=== PATIENT | female | born 1985 | race Caucasian/White ===

== ENCOUNTER 2017-08-15 07:23 | Inpatient (IN) | payer BC ==
[2017-08-15] MEDS ORDERED: Sodium Chloride 0.9% 10 ML Syringe FLUSH PRN (07:25)
[2017-08-15] MEDS ORDERED: Ondansetron 4 MG/2 ML SDV IVPUSH PRN (07:25)
[2017-08-15] MEDS ORDERED: Nalbuphine 20 MG/1 ML Amp IVPUSH PRN (07:25)
--- NOTE | 2017-08-15 07:29 | PCM.LDHP ---
L&D History of Present Illness - General Date of Service: 08/15/17 Admit Problem/Dx: Patient Status Order with Admit Dx/Problem 08/15/17 07:25 Patient Status [ADT] Routine Admission Diagnosis/Problem Admission Diagnosis/Problem Normal Source of Information: Patient History Limitations: Reports: No Limitations - History of Present Illness Introduction:: Patient is a 31 y/o at 37 0/7 wks who presents for IOL for pre- eclampsia. Reports doing well since last seen. No major concerns. Having some cramping, but no zaria contractions. No other concerns. - Related Data Allergies/Adverse Reactions: Allergies Allergy/AdvReac Type Severity Reaction Status Date / Time amoxicillin Allergy Mild Hives Verified 08/15/17 10:53 cephalexin [From Keflex] Allergy Hives Verified 08/15/17 10:53 Home Medications: Home Meds Ferrous Sulfate 325 mg PO DAILY 11/19/15 [History] PNV95/Ferrous Fumarate/FA [ Vitamins Tablet] 1 tab PO DAILY 11/19/15 [ History] Sertraline [Zoloft] 50 mg PO DAILY 11/19/15 [History] Acetaminophen [Tylenol] 650 mg PO Q4H PRN #0 tablet 11/21/15 [Rx] Benzocaine/Menthol [Dermoplast Pain Relief [place]] 1 spray TOP ASDIRECTED PRN #0 canister 11/21/15 [Rx] Ibuprofen [IJD: Ibuprofen] 600 mg PO Q4H PRN #0 tablet 11/21/15 [Rx] Labetalol [Normodyne] 200 mg PO BID #112 tablet 11/21/15 [Rx] [place] Sania [Tucks] 1 pad TOP ASDIRECTED PRN #0 pad 11/21/15 [Rx] Past Medical History Respiratory History: Reports: 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 Para: 1 LMP (Approximate): - Past Surgical History HEENT Surgical History: Reports: Adenoidectomy, Tonsillectomy Social & Family History - Tobacco Use Smoking Status *Q: Never Smoker - Alcohol Use Alcohol Use History: No - Recreational Drug Use Recreational Drug Use: No H&P Review of Systems - Review of Systems: Review Of Systems: See Below General: Reports: No Symptoms Pulmonary: Reports: No Symptoms Cardiovascular: Reports: No Symptoms Gastrointestinal: Reports: No Symptoms Genitourinary: Reports: No Symptoms Musculoskeletal: Reports: No Symptoms Skin: Reports: No Symptoms Neurological: Reports: No Symptoms L&D Exam - Exam Exam: See Below - OB Specific Contraction Intensity: Irritability Movement: Active Heart Tones: Present Heart Tones per Min: 145 Presentation: Vertex - Chun Score Chun Score Cervix Position: Posterior Chun Score Consistency: Medium Chun Score Effacement: 51-70% Chun Score Dilation: 1-2 cm Chun Score Infant's Station: -2 Chun Score Total: 5 - Exam General: Alert, Oriented, Cooperative Lungs: Clear to Auscultation, Normal Respiratory Effort Cardiovascular: Regular Rate, Regular Rhythm GI/Abdominal Exam: Soft, Non-Tender Genitourinary: Normal external exam Extremities: Normal Inspection Skin: Warm, Dry, Intact - Patient Data Result Diagrams: 08/15/17 08:10 08/15/17 08:10 - Problem List (1) 37 weeks gestation of SNOMED Code(s): 24056701 ICD Code: Z3A.37 - 37 WEEKS GESTATION OF Status: Acute Current Visit: Yes (2) Preeclampsia SNOMED Code(s): 648642373 ICD Code: O14.90 - UNSPECIFIED PRE-ECLAMPSIA, UNSPECIFIED TRIMESTER Status : Acute Current Visit: Yes Qualifiers: Trimester: third trimester Qualified Code(s): O14.93 - Unspecified pre- eclampsia, third trimester Problem List Initiated/Reviewed/Updated: Yes Orders Last 24hrs: Active Orders 24 hr Category Date Time Status Patient Status [ADT] Routine ADT 08/15/17 07:25 Ordered Communication Order [RC] ASDIRECTED Care 08/15/17 07:25 Ordered Communication Order [RC] ASDIRECTED Care 08/15/17 07:25 Ordered Communication Order [RC] ASDIRECTED Care 08/15/17 07:25 Ordered Heart Tones [RC] ASDIRECTED Care 08/15/17 07:26 Ordered Notify Provider [RC] ASDIRECTED Care 08/15/17 07:25 Ordered Notify Provider [RC] PRN Care 08/15/17 07:25 Ordered Peripheral IV Care [RC] . DIRECTED Care 08/15/17 07:26 Ordered Up ad Linda [RC] ASDIRECTED Care 08/15/17 07:25 Ordered Vaginal Exam [RC] ASDIRECTED Care 08/15/17 07:25 Ordered Vital Signs [RC] ASDIRECTED Care 08/15/17 07:25 Ordered Vital Signs [RC] PER UNIT ROUTINE Care 08/15/17 07:25 Ordered Regular Diet [DIET] Diet 08/15/17 Breakfast Ordered ALANINE AMINOTRANSFERASE,ALT [CHEM] Routine Lab 08/15/17 07:25 Ordered ASPARTATE AMNIOTRANSFERASE,AST [CHEM] Routine Lab 08/15/17 07:25 Ordered CBC W/O DIFF,HEMOGRAM [HEME] Routine Lab 08/15/17 07:25 Ordered CREATININE W/GFR [CHEM] Routine Lab 08/15/17 07:25 Ordered TYPE AND SCREEN [BBK] Routine Lab 08/15/17 07:25 Ordered UA W/O MICROSCOPIC [URIN] Routine Lab 08/15/17 07:25 Uncollected Lactated Ringers [Ringers, Lactated] 1,000 ml Med 08/15/17 07:30 Ordered IV ASDIRECTED Nalbuphine [Nubain] Med 08/15/17 07:25 Ordered 10 mg IVPUSH Q2H PRN Ondansetron [Zofran] Med 08/15/17 07:25 Ordered 4 mg IVPUSH Q4H PRN Oxytocin/Lactated Ringers [Pitocin in LR 10 Units/1,000 Med 08/15/17 07:30 Ordered ML] 10 unit in 1,000 ml IV .CONTINUOUS Oxytocin/Lactated Ringers [Pitocin in LR 10 Units/1,000 Med 08/15/17 07:30 Ordered ML] 10 unit in 1,000 ml IV TITRATE Sodium Chloride 0.9% [Saline Flush] Med 08/15/17 07:25 Ordered 10 ml FLUSH ASDIRECTED PRN Electronic Heart Tones Ext w TOCO [WOMSER] Oth 08/15/17 07:25 Ordered Routine Electronic Heart Tones Internal [WOMSER] Per Unit Oth 08/15/17 07:25 Ordered Routine Peripheral IV Insertion Adult [OM.PC] Routine Oth 08/15/17 07:25 Ordered Resuscitation Status Routine Resus Stat 08/15/17 07:25 Ordered Assessment/Plan Comment:: 31 y/o at 37 0/7 wks presents for IOL for preeclampsia without severe features * CBC, T&S, Creatinine, AST, ALT * Pitocin with eventual AROM for IOL * Pain management per patient preference * Anticipate
[2017-08-15] MEDS ORDERED: Oxytocin/Lactated Ringers 10 UNIT/1,000 ML BAG IV SCH ×2 (07:30)
[2017-08-15] MEDS ORDERED: fentaNYL 100 MCG/2 ML SDV EPIDUR PRN (07:50)
[2017-08-15] MEDS ORDERED: diphenhydrAMINE 50 MG/ML SDV IVPUSH PRN (07:50)
[2017-08-15] MEDS ORDERED: ePHEDrine 50 MG/ML SDV IVPUSH PRN (07:50)
[2017-08-15] MEDS ORDERED: Bupivacaine/fentaNYL/NS 100 ML Bag EPIDUR SCH (08:00)
[2017-08-15] MEDS: Lactated Ringers 1,000 ML IV SCH ×3 (08:58→15:30)
--- NOTE | 2017-08-15 12:44 | PCM.PNLD ---
Labor Progress Note - VS & Meds Vital Signs: Last Vital Signs Temp 37.0 C 08/15/17 08:58 Pulse 69 08/15/17 10:32 Resp 15 08/15/17 08:58 BP 131/90 08/15/17 10:32 Pulse Ox Active Medications: Current Medications Diphenhydramine HCl (Benadryl) 25 mg IVPUSH Q6H PRN PRN Reason: Itching Ephedrine Sulfate (Ephedrine Sulfate) 5 mg IVPUSH ASDIRECTED PRN PRN Reason: HYPOTENTSION Fentanyl (Sublimaze) 100 mcg EPIDUR Q3H PRN PRN Reason: PAIN Fentanyl/Bupivacaine HCl (Fentanyl/Bupivacaine/Ns 2 Mcg-0.125% 100 Ml) 100 ml EPIDUR ASDIRECTED ANEL Lactated Ringer's (Ringers, Lactated) 1,000 mls @ 40 mls/hr IV ASDIRECTED ANEL Last Admin: 08/15/17 08:58 Dose: 40 mls/hr Oxytocin/Lactated Ringer's (Pitocin In Lr 10 Units/1,000 Ml) 10 unit in 1,000 mls @ 12 mls/hr IV TITRATE ANEL; 2 MUNITS/MIN PRN Reason: Protocol Last Titration: 08/15/17 10:33 Dose: 8 munits/min, 48 mls/hr Oxytocin/Lactated Ringer's (Pitocin In Lr 10 Units/1,000 Ml) 10 unit in 1,000 mls @ 500 mls/hr IV .CONTINUOUS ANEL Nalbuphine HCl (Nubain) 10 mg IVPUSH Q2H PRN PRN Reason: Pain (moderate 4-6) Ondansetron HCl (Zofran) 4 mg IVPUSH Q4H PRN PRN Reason: Nausea/Vomiting Sodium Chloride (Saline Flush) 10 ml FLUSH ASDIRECTED PRN PRN Reason: Keep Vein Open - Uterine Contractions Uterine Monitoring Mode: External [place] Contraction Intensity: Mild to Moderate Uterine Resting Tone: Soft - Monitoring Monitor Mode: External Ultrasound Heart Rate (FHR) Baseline: 150 Heart Rate (FHR) Variability: Moderate (6-25 bmp) Accelerations: Present, 15x15 Decelerations: None Strip Review: Category I - Vaginal Exam Dilation (cm): 2 Effacement (Percent): 75 Station: -2 Cervical Position: Posterior - Labor Progress (Free Text) Labor Progress: Patient doing well. Starting to feel some discomfort with contractions. BP's remain normal to mild range. Continue present management
--- NOTE | 2017-08-15 14:02 | PCM.PREANE ---
Preanesthetic Assessment - Anesthesia/Transfusion/Family Hx Anesthesia History: Prior Anesthesia Without Reaction Family History of Anesthesia Reaction: No Transfusion History: No Prior Transfusion(s) - Review of Systems General: No Symptoms Pulmonary: No Symptoms Cardiovascular: No Symptoms Gastrointestinal: No Symptoms Neurological: No Symptoms Other: Reports: None - Physical Assessment Pulse: 69 O2 Sat by Pulse Oximetry: 97 Respiratory Rate: 15 Blood Pressure: 131/90 Temperature: 36.3 C Vital Signs: Last Vital Signs Temp 37.0 C 08/15/17 08:58 Pulse 69 08/15/17 10:32 Resp 15 08/15/17 08:58 BP 131/90 08/15/17 10:32 Pulse Ox Height: 1.55 m Weight: 62.596 kg ASA Class: 2 Mental Status: Alert & Oriented x3 Airway Class: Mallampati = 1 Dentition: Reports: Normal Dentition Thyro-Mental Finger Breadths: 3 Mouth Opening Finger Breadths: 3 ROM/Head Extension: Full Lungs: Clear to Auscultation, Normal Respiratory Effort Cardiovascular: Regular Rate, Regular Rhythm - Lab Values: Laboratory Last Values WBC 10.85 K/mm3 (3.98-10.04) H 08/15/17 08:10 RBC 3.90 M/mm3 (3.98-5.22) L 08/15/17 08:10 Hgb 12.0 gm/L (11.2-15.7) 08/15/17 08:10 Hct 35.1 % (34.1-44.9) 08/15/17 08:10 MCV 90.0 fl (79.4-94.8) 08/15/17 08:10 MCH 30.8 pg (25.6-32.2) 08/15/17 08:10 MCHC 34.2 g/dl (32.2-35.5) 08/15/17 08:10 RDW Std Deviation 42.0 fL (36.4-46.3) 08/15/17 08:10 Plt Count 282 K/mm3 (182-369) 08/15/17 08:10 MPV 9.7 fl (9.4-12.3) 08/15/17 08:10 Creatinine 0.5 mg/dL (0.55-1.02) L 08/15/17 08:10 Est Cr Clr Drug Dosing TNP 08/15/17 08:10 Estimated GFR (MDRD) > 60 mL/min (>60) 08/15/17 08:10 AST 22 U/L (15-37) 08/15/17 08:10 ALT 20 U/L (14-59) 08/15/17 08:10 Urine Color Yellow (Yellow) 08/15/17 11:15 Urine Appearance Clear (Clear) 08/15/17 11:15 Urine pH 7.0 (5.0-8.0) 08/15/17 11:15 Ur Specific [place] 1.025 (1.005-1.030) 08/15/17 11:15 Urine Protein Negative (Negative) 08/15/17 11:15 Urine Glucose (UA) Negative (Negative) 08/15/17 11:15 Urine Ketones Negative (Negative) 08/15/17 11:15 Urine Occult Blood Negative (Negative) 08/15/17 11:15 Urine Nitrite Negative (Negative) 08/15/17 11:15 Urine Bilirubin Negative (Negative) 08/15/17 11:15 Urine Urobilinogen 0.2 (0.2-1.0) 08/15/17 11:15 Ur Leukocyte Esterase Negative (Negative) 08/15/17 11:15 Blood Type O POSITIVE 08/15/17 08:10 Gel Antibody Screen Negative 08/15/17 08:10 - Allergies Allergies/Adverse Reactions: Allergies Allergy/AdvReac Type Severity Reaction Status Date / Time amoxicillin Allergy Mild Hives Verified 08/15/17 10:53 cephalexin [From Keflex] Allergy Hives Verified 08/15/17 10:53 - Anesthesia Plan Pre-Op Medication Ordered: None - Acknowledgements Anesthesia Type Planned: Epidural Pt an Appropriate Candidate for the Planned Anesthesia: Yes Alternatives and Risks of Anesthesia Discussed w Pt/Guardian: Yes Pt/Guardian Understands and Agrees with Anesthesia Plan: Yes PreAnesthesia Questionnaire Respiratory History: Reports: Asthma Other Respiratory History: pt states asthma is very mild and does not use an inhaler Gastrointestinal History: Reports: GERD 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: , Other (See Below) Other OB/BYN History: hx of gest diabetes and preeclampsia with previous - Past Surgical History HEENT Surgical History: Reports: Adenoidectomy, Oral Surgery, Tonsillectomy - SUBSTANCE USE Smoking Status *Q: Never Smoker Second Hand Smoke Exposure: No Recreational Drug Use History: No - HOME MEDS Home Medications: Home Meds Ferrous Sulfate 325 mg PO DAILY 11/19/15 [History] PNV95/Ferrous Fumarate/FA [ Vitamins Tablet] 1 tab PO DAILY 11/19/15 [ History] Sertraline [Zoloft] 50 mg PO DAILY 11/19/15 [History] Acetaminophen [Tylenol] 650 mg PO Q4H PRN #0 tablet 11/21/15 [Rx] Benzocaine/Menthol [Dermoplast Pain Relief [place]] 1 spray TOP ASDIRECTED PRN #0 canister 11/21/15 [Rx] Ibuprofen [IJD: Ibuprofen] 600 mg PO Q4H PRN #0 tablet 11/21/15 [Rx] Labetalol [Normodyne] 200 mg PO BID #112 tablet 11/21/15 [Rx] [place] Sania [Tucks] 1 pad TOP ASDIRECTED PRN #0 pad 11/21/15 [Rx] - CURRENT (IN HOUSE) MEDS Current Meds: Current Medications Diphenhydramine HCl (Benadryl) 25 mg IVPUSH Q6H PRN PRN Reason: Itching Ephedrine Sulfate (Ephedrine Sulfate) 5 mg IVPUSH ASDIRECTED PRN PRN Reason: HYPOTENTSION Fentanyl (Sublimaze) 100 mcg EPIDUR Q3H PRN PRN Reason: PAIN Last Admin: 08/15/17 13:53 Dose: 100 mcg Fentanyl/Bupivacaine HCl (Fentanyl/Bupivacaine/Ns 2 Mcg-0.125% 100 Ml) 100 ml EPIDUR ASDIRECTED ANEL Last Admin: 08/15/17 13:54 Dose: 100 ml Lactated Ringer's (Ringers, Lactated) 1,000 mls @ 40 mls/hr IV ASDIRECTED ANEL Last Admin: 08/15/17 08:58 Dose: 40 mls/hr Oxytocin/Lactated Ringer's (Pitocin In Lr 10 Units/1,000 Ml) 10 unit in 1,000 mls @ 12 mls/hr IV TITRATE ANEL; 2 MUNITS/MIN PRN Reason: Protocol Last Titration: 08/15/17 10:33 Dose: 8 munits/min, 48 mls/hr Oxytocin/Lactated Ringer's (Pitocin In Lr 10 Units/1,000 Ml) 10 unit in 1,000 mls @ 500 mls/hr IV .CONTINUOUS ANEL Nalbuphine HCl (Nubain) 10 mg IVPUSH Q2H PRN PRN Reason: Pain (moderate 4-6) Ondansetron HCl (Zofran) 4 mg IVPUSH Q4H PRN PRN Reason: Nausea/Vomiting Sodium Chloride (Saline Flush) 10 ml FLUSH ASDIRECTED PRN PRN Reason: Keep Vein Open
--- NOTE | 2017-08-15 18:27 | PCM.PNLD ---
Labor Progress Note - VS & Meds Vital Signs: Last Vital Signs Temp 36.3 C 08/15/17 14:02 Pulse 69 08/15/17 14:02 Resp 15 08/15/17 14:02 BP 131/90 08/15/17 14:02 Pulse Ox 97 08/15/17 14:02 Active Medications: Current Medications Diphenhydramine HCl (Benadryl) 25 mg IVPUSH Q6H PRN PRN Reason: Itching Ephedrine Sulfate (Ephedrine Sulfate) 5 mg IVPUSH ASDIRECTED PRN PRN Reason: HYPOTENTSION Fentanyl (Sublimaze) 100 mcg EPIDUR Q3H PRN PRN Reason: PAIN Last Admin: 08/15/17 13:53 Dose: 100 mcg Fentanyl/Bupivacaine HCl (Fentanyl/Bupivacaine/Ns 2 Mcg-0.125% 100 Ml) 100 ml EPIDUR ASDIRECTED ANEL Last Admin: 08/15/17 13:54 Dose: 100 ml Lactated Ringer's (Ringers, Lactated) 1,000 mls @ 40 mls/hr IV ASDIRECTED ANEL Last Admin: 08/15/17 14:23 Dose: 40 mls/hr Oxytocin/Lactated Ringer's (Pitocin In Lr 10 Units/1,000 Ml) 10 unit in 1,000 mls @ 12 mls/hr IV TITRATE ANEL; 2 MUNITS/MIN PRN Reason: Protocol Last Titration: 08/15/17 18:22 Dose: 0 munits/min, 0 mls/hr Oxytocin/Lactated Ringer's (Pitocin In Lr 10 Units/1,000 Ml) 10 unit in 1,000 mls @ 500 mls/hr IV .CONTINUOUS ANEL Nalbuphine HCl (Nubain) 10 mg IVPUSH Q2H PRN PRN Reason: Pain (moderate 4-6) Ondansetron HCl (Zofran) 4 mg IVPUSH Q4H PRN PRN Reason: Nausea/Vomiting Sodium Chloride (Saline Flush) 10 ml FLUSH ASDIRECTED PRN PRN Reason: Keep Vein Open - Uterine Contractions Uterine Monitoring Mode: External [place] Contraction Intensity: Moderate Uterine Resting Tone: Soft - Monitoring Monitor Mode: External Ultrasound Heart Rate (FHR) Baseline: 145 Heart Rate (FHR) Variability: Moderate (6-25 bmp) Accelerations: Present, 15x15 Decelerations: Variable, Intermittent (<50% x 20 min) Strip Review: Category II - Vaginal Exam Dilation (cm): 4 Effacement (Percent): 80 Station: -2 Cervical Position: Midposition - Labor Progress (Free Text) Labor Progress: Patient doing well. Did have some late decelerations after epidural. Those resolved with position changes. Comfortable otherwise.
--- NOTE | 2017-08-15 18:29 | PCM.PNLD ---
Labor Progress Note - VS & Meds Vital Signs: Last Vital Signs Temp 36.3 C 08/15/17 14:02 Pulse 69 08/15/17 14:02 Resp 15 08/15/17 14:02 BP 131/90 08/15/17 14:02 Pulse Ox 97 08/15/17 14:02 Active Medications: Current Medications Diphenhydramine HCl (Benadryl) 25 mg IVPUSH Q6H PRN PRN Reason: Itching Ephedrine Sulfate (Ephedrine Sulfate) 5 mg IVPUSH ASDIRECTED PRN PRN Reason: HYPOTENTSION Fentanyl (Sublimaze) 100 mcg EPIDUR Q3H PRN PRN Reason: PAIN Last Admin: 08/15/17 13:53 Dose: 100 mcg Fentanyl/Bupivacaine HCl (Fentanyl/Bupivacaine/Ns 2 Mcg-0.125% 100 Ml) 100 ml EPIDUR ASDIRECTED ANEL Last Admin: 08/15/17 13:54 Dose: 100 ml Lactated Ringer's (Ringers, Lactated) 1,000 mls @ 40 mls/hr IV ASDIRECTED ANEL Last Admin: 08/15/17 14:23 Dose: 40 mls/hr Oxytocin/Lactated Ringer's (Pitocin In Lr 10 Units/1,000 Ml) 10 unit in 1,000 mls @ 12 mls/hr IV TITRATE ANEL; 2 MUNITS/MIN PRN Reason: Protocol Last Titration: 08/15/17 18:22 Dose: 0 munits/min, 0 mls/hr Oxytocin/Lactated Ringer's (Pitocin In Lr 10 Units/1,000 Ml) 10 unit in 1,000 mls @ 500 mls/hr IV .CONTINUOUS ANEL Nalbuphine HCl (Nubain) 10 mg IVPUSH Q2H PRN PRN Reason: Pain (moderate 4-6) Ondansetron HCl (Zofran) 4 mg IVPUSH Q4H PRN PRN Reason: Nausea/Vomiting Sodium Chloride (Saline Flush) 10 ml FLUSH ASDIRECTED PRN PRN Reason: Keep Vein Open - Uterine Contractions Uterine Monitoring Mode: External [place] Contraction Intensity: Moderate Uterine Resting Tone: Soft - Monitoring Monitor Mode: External Ultrasound Heart Rate (FHR) Baseline: 150 Heart Rate (FHR) Variability: Moderate (6-25 bmp) Accelerations: Present, 15x15 Decelerations: Variable, Intermittent (<50% x 20 min) Strip Review: Category II - Vaginal Exam Dilation (cm): 5-6 Effacement (Percent): 80 Station: -2 Cervical Position: Midposition - Labor Progress (Free Text) Labor Progress: Called by nursing due to 2 severe range BP's in a row. Asked nursing to check patient and she is 5-6, 90%, and -1. Also having more variables. Pitocin decreased to 6 and then turned off completely with resolution of variable decelerations. BP's back to upper mild range. Continue to monitor closely
[2017-08-15] MEDS ORDERED: Magnesium Sulfate/Water 4 GM in Premix Bag 1 BAG IV ONE (18:32)
[2017-08-15] MEDS ORDERED: Magnesium Sulfate/Water 2 GM in Premix Bag 1 BAG IV ONE (18:32)
[2017-08-15] MEDS ORDERED: Magnesium Sulfate/Water 40 GM/1,000 ML BAG IV SCH (18:45)
--- NOTE | 2017-08-15 20:45 | PCM.DEL ---
L & D Note - General Info Date of Service: 08/15/17 - Delivery Note Labor: Induced by ARM, Induced by Oxytocin Delivery Outcome: Livebirth Infant Delivery Method: Spontaneous Vaginal Delivery-Single Infant Delivery Mode: Spontaneous Presentation: Left Occiput Anterior (MARY) Nuchal Cord: Present (x2) Anesthesia Type: Epidural Amniotic Fluid Description: Clear Episiotomy Type: None Laceration: 2nd Degree, Vaginal Suture type: Vicryl Suture size: 2-0 Placenta: Intact, Spontaneous Cord: 3 Vessels Estimated Blood Loss: 250 Resuscitation Needed: Yes [place]: Bulb Syringe, Stimulated, Warmed, [place] Used Score 1 min: 8 Score 5 min: 8 Delivery Comments (Free Text/Narrative):: Patient found to be complete and began pushing. With maternal pushing effort head delivered from an MARY presentation. Tight nuchal present, but could not be reduced as there was continued maternal pushing effort. With gentle downward traction the shoulders and body delivered. Infant placed on maternal abdomen. Cord clamped and cut. Cord blood obtained. Placenta allowed time to separate and spontaneously expelled. Inspection of the perineum showed a 2nd degree laceration of the vagina on maternal right. There was a swiftly bleeding vessel in this site which was controlled with two separate figure of eight sutures of 2-0 vicryl. Next the remainder of tear was closed in a typical fashion with a 2-0 vicryl. On patient's left the hymen was particularly swollen. This is the site of where she had a hematoma with last . No tear in this area. Ice applied immediately. Will monitor tomorrow. - Patient Data Vitals - Most Recent: Last Vital Signs Temp 36.3 C 08/15/17 14:02 Pulse 69 08/15/17 14:02 Resp 15 08/15/17 14:02 BP 131/90 08/15/17 14:02 Pulse Ox 97 08/15/17 14:02 Weight - Most Recent: 62.596 kg Lab Results Last 24 Hours: Laboratory Results - last 24 hr 08/15/17 08/15/17 08/15/17 Range/Units 08:10 08:10 08:10 WBC 10.85 H (3.98-10.04) K/mm3 RBC 3.90 L (3.98-5.22) M/mm3 Hgb 12.0 (11.2-15.7) gm/L Hct 35.1 (34.1-44.9) % MCV 90.0 (79.4-94.8) fl MCH 30.8 (25.6-32.2) pg MCHC 34.2 (32.2-35.5) g/dl RDW Std Deviation 42.0 (36.4-46.3) fL Plt Count 282 (182-369) K/mm3 MPV 9.7 (9.4-12.3) fl Creatinine 0.5 L (0.55-1.02) mg/dL Est Cr Clr Drug Dosing TNP Estimated GFR (MDRD) > 60 (>60) mL/min AST 22 (15-37) U/L ALT 20 (14-59) U/L Urine Color (Yellow) Urine Appearance (Clear) Urine pH (5.0-8.0) Ur Specific [place] (1.005-1.030) Urine Protein (Negative) Urine Glucose (UA) (Negative) Urine Ketones (Negative) Urine Occult Blood (Negative) Urine Nitrite (Negative) Urine Bilirubin (Negative) Urine Urobilinogen (0.2-1.0) Ur Leukocyte Esterase (Negative) Blood Type O POSITIVE Gel Antibody Screen Negative 08/15/17 Range/Units 11:15 WBC (3.98-10.04) K/mm3 RBC (3.98-5.22) M/mm3 Hgb (11.2-15.7) gm/L Hct (34.1-44.9) % MCV (79.4-94.8) fl MCH (25.6-32.2) pg MCHC (32.2-35.5) g/dl RDW Std Deviation (36.4-46.3) fL Plt Count (182-369) K/mm3 MPV (9.4-12.3) fl Creatinine (0.55-1.02) mg/dL Est Cr Clr Drug Dosing Estimated GFR (MDRD) (>60) mL/min AST (15-37) U/L ALT (14-59) U/L Urine Color Yellow (Yellow) Urine Appearance Clear (Clear) Urine pH 7.0 (5.0-8.0) Ur Specific [place] 1.025 (1.005-1.030) Urine Protein Negative (Negative) Urine Glucose (UA) Negative (Negative) Urine Ketones Negative (Negative) Urine Occult Blood Negative (Negative) Urine Nitrite Negative (Negative) Urine Bilirubin Negative (Negative) Urine Urobilinogen 0.2 (0.2-1.0) Ur Leukocyte Esterase Negative (Negative) Blood Type Gel Antibody Screen Med Orders - Current: Current Medications Diphenhydramine HCl (Benadryl) 25 mg IVPUSH Q6H PRN PRN Reason: Itching Ephedrine Sulfate (Ephedrine Sulfate) 5 mg IVPUSH ASDIRECTED PRN PRN Reason: HYPOTENTSION Fentanyl (Sublimaze) 100 mcg EPIDUR Q3H PRN PRN Reason: PAIN Last Admin: 08/15/17 13:53 Dose: 100 mcg Fentanyl/Bupivacaine HCl (Fentanyl/Bupivacaine/Ns 2 Mcg-0.125% 100 Ml) 100 ml EPIDUR ASDIRECTED ANEL Last Admin: 08/15/17 13:54 Dose: 100 ml Lactated Ringer's (Ringers, Lactated) 1,000 mls @ 40 mls/hr IV ASDIRECTED ANEL Last Admin: 08/15/17 15:30 Dose: 40 mls/hr Oxytocin/Lactated Ringer's (Pitocin In Lr 10 Units/1,000 Ml) 10 unit in 1,000 mls @ 12 mls/hr IV TITRATE ANEL; 2 MUNITS/MIN PRN Reason: Protocol Last Titration: 08/15/17 18:22 Dose: 0 munits/min, 0 mls/hr Oxytocin/Lactated Ringer's (Pitocin In Lr 10 Units/1,000 Ml) 10 unit in 1,000 mls @ 500 mls/hr IV .CONTINUOUS ANEL Magnesium Sulfate (Magnesium Sulfate 40 Gm In Water 1000 Ml) 40 gm in 1,000 mls @ 50 mls/hr IV ASDIRECTED ANEL Nalbuphine HCl (Nubain) 10 mg IVPUSH Q2H PRN PRN Reason: Pain (moderate 4-6) Ondansetron HCl (Zofran) 4 mg IVPUSH Q4H PRN PRN Reason: Nausea/Vomiting Sodium Chloride (Saline Flush) 10 ml FLUSH ASDIRECTED PRN PRN Reason: Keep Vein Open Discontinued Medications Magnesium Sulfate 2 gm/ Premix 50 mls @ 25 mls/hr IV ONETIME ONE Stop: 08/15/17 20:31 Last Admin: 08/15/17 18:58 Dose: 300 mls/hr Magnesium Sulfate 4 gm/ Premix 100 mls @ 400 mls/hr IV ONETIME ONE Stop: 08/15/17 18:46 Last Admin: 08/15/17 19:17 Dose: 400 mls/hr - Problem List & Annotations (1) 37 weeks gestation of SNOMED Code(s): 24790888 Code(s): Z3A.37 - 37 WEEKS GESTATION OF Status: Acute Current Visit: Yes (2) Preeclampsia SNOMED Code(s): 485848176 Code(s): O14.90 - UNSPECIFIED PRE-ECLAMPSIA, UNSPECIFIED TRIMESTER Status: Acute Current Visit: Yes Qualifiers: Trimester: third trimester Qualified Code(s): O14.93 - Unspecified pre- eclampsia, third trimester (3) Vaginal delivery SNOMED Code(s): 047708798 Code(s): O80 - ENCOUNTER FOR FULL-TERM UNCOMPLICATED DELIVERY Status: Acute Current Visit: Yes - Problem List Review Problem List Initiated/Reviewed/Updated: Yes - My Orders Last 24 Hours: My Active Orders 08/15/17 07:25 Patient Status [ADT] Routine Communication Order [RC] ASDIRECTED Communication Order [RC] ASDIRECTED Communication Order [RC] ASDIRECTED Notify Provider [RC] ASDIRECTED Notify Provider [RC] PRN Up ad Linda [RC] ASDIRECTED Vaginal Exam [RC] ASDIRECTED Vital Signs [RC] ASDIRECTED Nalbuphine [Nubain] 10 mg IVPUSH Q2H PRN Ondansetron [Zofran] 4 mg IVPUSH Q4H PRN Sodium Chloride 0.9% [Saline Flush] 10 ml FLUSH ASDIRECTED PRN Electronic Heart Tones Ext w TOCO [WOMSER] Routine Electronic Heart Tones Internal [WOMSER] Per Unit Routine Peripheral IV Insertion Adult [OM.PC] Routine Resuscitation Status Routine 08/15/17 07:26 Peripheral IV Care [RC] . DIRECTED 08/15/17 07:30 Lactated Ringers [Ringers, Lactated] 1,000 ml IV ASDIRECTED Oxytocin/Lactated Ringers [Pitocin in LR 10 Units/1,000 ML] 10 unit in 1,000 ml IV .CONTINUOUS Oxytocin/Lactated Ringers [Pitocin in LR 10 Units/1,000 ML] 10 unit in 1,000 ml IV TITRATE 08/15/17 18:45 Magnesium Sulfate/Water [Magnesium Sulfate 40 GM in Water 1000 ML] 40 gm in 1, 000 ml IV ASDIRECTED 08/15/17 Breakfast Regular Diet [DIET] - Assessment Assessment:: 31 y/o G2 now P2002 PPD#0 from at 37 0/7 wks for preeclampsia - Plan Plan:: for preeclampsia * Magnesium started 30 minutes prior to pushing as BP's became severe. Will continue overnight * Ice for perineal care over night * Routine cares * Discharge home in 2 days
[2017-08-15] MEDS ORDERED: Lanolin 100% Cream 7 GM Tube TOP PRN (21:09)
[2017-08-15] MEDS ORDERED: Benzocaine/Menthol 20%-0.5% Spray 56 GM Canister TOP PRN (21:09)
[2017-08-15] MEDS ORDERED: Witch Hazel Medicated Pads 100/Jar TOP PRN (21:09)
[2017-08-15] MEDS ORDERED: Acetaminophen 325 MG Tab PO PRN (21:09)
[2017-08-15] MEDS ORDERED: Bupivacaine 0.25% 10 ML SDV ONE (22:22)
[2017-08-15] MEDS: Ibuprofen 600 MG Tab PO PRN (23:31)
[2017-08-16] MEDS: Ibuprofen 600 MG Tab PO PRN ×2 (05:22→15:42)
[2017-08-16] MEDS: Lactated Ringers 1,000 ML IV SCH (07:05)
--- NOTE | 2017-08-16 07:44 | PCM.PNPP ---
- General Info Date of Service: 08/16/17 Functional Status: Reports: Pain Controlled, Tolerating Diet, Ambulating - Review of Systems General: Reports: No Symptoms Pulmonary: Reports: No Symptoms Cardiovascular: Reports: No Symptoms Gastrointestinal: Reports: No Symptoms Genitourinary: Reports: Pain, Other (Overnight patient apparently could not void and around 2300 was striaght catheterized for ~1L. This ocurred again around 0500 this am for similar amount) Musculoskeletal: Reports: No Symptoms - Patient Data Vital Signs - Most Recent: Last Vital Signs Temp 36.6 C 08/16/17 04:00 Pulse 61 08/16/17 05:23 Resp 16 08/16/17 05:23 BP 121/84 08/16/17 05:23 Pulse Ox 100 08/16/17 05:23 Weight - Most Recent: 62.596 kg I&O - Last 24 Hours: Intake & Output 08/15/17 08/16/17 08/16/17 22:59 06:59 14:59 Intake Total 1590 600 Output Total 2400 Balance 1590 -1800 Lab Results - Last 24 Hours: Laboratory Results - last 24 hr 08/15/17 08/15/17 08/15/17 Range/Units 08:10 08:10 08:10 WBC 10.85 H (3.98-10.04) K/mm3 RBC 3.90 L (3.98-5.22) M/mm3 Hgb 12.0 (11.2-15.7) gm/L Hct 35.1 (34.1-44.9) % MCV 90.0 (79.4-94.8) fl MCH 30.8 (25.6-32.2) pg MCHC 34.2 (32.2-35.5) g/dl RDW Std Deviation 42.0 (36.4-46.3) fL Plt Count 282 (182-369) K/mm3 MPV 9.7 (9.4-12.3) fl Creatinine 0.5 L (0.55-1.02) mg/dL Est Cr Clr Drug Dosing TNP Estimated GFR (MDRD) > 60 (>60) mL/min AST 22 (15-37) U/L ALT 20 (14-59) U/L Urine Color (Yellow) Urine Appearance (Clear) Urine pH (5.0-8.0) Ur Specific [place] (1.005-1.030) Urine Protein (Negative) Urine Glucose (UA) (Negative) Urine Ketones (Negative) Urine Occult Blood (Negative) Urine Nitrite (Negative) Urine Bilirubin (Negative) Urine Urobilinogen (0.2-1.0) Ur Leukocyte Esterase (Negative) Blood Type O POSITIVE Gel Antibody Screen Negative 08/15/17 Range/Units 11:15 WBC (3.98-10.04) K/mm3 RBC (3.98-5.22) M/mm3 Hgb (11.2-15.7) gm/L Hct (34.1-44.9) % MCV (79.4-94.8) fl MCH (25.6-32.2) pg MCHC (32.2-35.5) g/dl RDW Std Deviation (36.4-46.3) fL Plt Count (182-369) K/mm3 MPV (9.4-12.3) fl Creatinine (0.55-1.02) mg/dL Est Cr Clr Drug Dosing Estimated GFR (MDRD) (>60) mL/min AST (15-37) U/L ALT (14-59) U/L Urine Color Yellow (Yellow) Urine Appearance Clear (Clear) Urine pH 7.0 (5.0-8.0) Ur Specific [place] 1.025 (1.005-1.030) Urine Protein Negative (Negative) Urine Glucose (UA) Negative (Negative) Urine Ketones Negative (Negative) Urine Occult Blood Negative (Negative) Urine Nitrite Negative (Negative) Urine Bilirubin Negative (Negative) Urine Urobilinogen 0.2 (0.2-1.0) Ur Leukocyte Esterase Negative (Negative) Blood Type Gel Antibody Screen Med Orders - Current: Current Medications Acetaminophen (Tylenol) 650 mg PO Q4H PRN PRN Reason: mild pain or fever Benzocaine/Menthol (Dermoplast Pain Relief [place]) 0 gm TOP ASDIRECTED PRN PRN Reason: Perineal Comfort Measure Last Admin: 08/16/17 01:17 Dose: 1 canister Docusate Sodium (Colace) 100 mg PO BID PRN PRN Reason: Constipation Emollient Ointment (Lansinoh Hpa) 0 gm TOP ASDIRECTED PRN PRN Reason: Sore Nipples Lactated Ringer's (Ringers, Lactated) 1,000 mls @ 40 mls/hr IV ASDIRECTED ANEL Last Admin: 08/16/17 07:05 Dose: 40 mls/hr Magnesium Sulfate (Magnesium Sulfate 40 Gm In Water 1000 Ml) 40 gm in 1,000 mls @ 50 mls/hr IV ASDIRECTED ANEL Last Admin: 08/15/17 19:30 Dose: 50 mls/hr Ibuprofen (Motrin) 600 mg PO Q6H PRN PRN Reason: Mild pain or fever Last Admin: 08/16/17 05:22 Dose: 600 mg Sertraline HCl (Zoloft) 50 mg PO DAILY [facility] Katie Lui (Tucks) 1 pad TOP ASDIRECTED PRN PRN Reason: Hemorrhoid pain Last Admin: 08/15/17 22:00 Dose: 1 container Discontinued Medications Diphenhydramine HCl (Benadryl) 25 mg IVPUSH Q6H PRN PRN Reason: Itching Ephedrine Sulfate (Ephedrine Sulfate) 5 mg IVPUSH ASDIRECTED PRN PRN Reason: HYPOTENTSION Fentanyl (Sublimaze) 100 mcg EPIDUR Q3H PRN PRN Reason: PAIN Last Admin: 08/15/17 13:53 Dose: 100 mcg Fentanyl/Bupivacaine HCl (Fentanyl/Bupivacaine/Ns 2 Mcg-0.125% 100 Ml) 100 ml EPIDUR ASDIRECTED ANEL Last Admin: 08/15/17 13:54 Dose: 100 ml Oxytocin/Lactated Ringer's (Pitocin In Lr 10 Units/1,000 Ml) 10 unit in 1,000 mls @ 12 mls/hr IV TITRATE ANEL; 2 MUNITS/MIN PRN Reason: Protocol Last Titration: 08/15/17 18:22 Dose: 0 munits/min, 0 mls/hr Oxytocin/Lactated Ringer's (Pitocin In Lr 10 Units/1,000 Ml) 10 unit in 1,000 mls @ 500 mls/hr IV .CONTINUOUS ANEL Magnesium Sulfate 2 gm/ Premix 50 mls @ 25 mls/hr IV ONETIME ONE Stop: 08/15/17 20:31 Last Admin: 08/15/17 18:58 Dose: 300 mls/hr Magnesium Sulfate 4 gm/ Premix 100 mls @ 400 mls/hr IV ONETIME ONE Stop: 08/15/17 18:46 Last Admin: 08/15/17 19:17 Dose: 400 mls/hr Nalbuphine HCl (Nubain) 10 mg IVPUSH Q2H PRN PRN Reason: Pain (moderate 4-6) Ondansetron HCl (Zofran) 4 mg IVPUSH Q4H PRN PRN Reason: Nausea/Vomiting Sodium Chloride (Saline Flush) 10 ml FLUSH ASDIRECTED PRN PRN Reason: Keep Vein Open - Infant Interaction Disposition, : in Room with Family Interaction: Holding Infant Feeding: Breastfed ; Nursed Well Support Person: - Recovery Exam Fundal Tone: Firm Fundal Level: At Umbilicus Fundal Placement: Midline Lochia Amount: Small, Moderate Lochia Color: Rubra/Red Perineum Description: Edematous, Hematoma Episiotomy/Laceration: Approximated Urinary Elimination: Not Voiding, Straight Catheterization - Exam General: Alert, Oriented, Cooperative Lungs: Clear to Auscultation, Normal Respiratory Effort Cardiovascular: Regular Rate, Regular Rhythm GI/Abdominal Exam: Soft, Non-Tender Extremities: Normal Inspection Skin: Warm, Dry, Intact Neurological: Reflexes Equal Bilateral - Problem List & Annotations (1) 37 weeks gestation of SNOMED Code(s): 80484905 Code(s): Z3A.37 - 37 WEEKS GESTATION OF Status: Acute Current Visit: Yes (2) Preeclampsia SNOMED Code(s): 758545472 Code(s): O14.90 - UNSPECIFIED PRE-ECLAMPSIA, UNSPECIFIED TRIMESTER Status: Acute Current Visit: Yes Qualifiers: Trimester: third trimester Qualified Code(s): O14.93 - Unspecified pre- eclampsia, third trimester (3) Vaginal delivery SNOMED Code(s): 599306701 Code(s): O80 - ENCOUNTER FOR FULL-TERM UNCOMPLICATED DELIVERY Status: Acute Current Visit: Yes - Problem List Review Problem List Initiated/Reviewed/Updated: Yes - My Orders Last 24 Hours: My Active Orders 08/15/17 07:25 Vaginal Exam [RC] ASDIRECTED Vital Signs [RC] ASDIRECTED Resuscitation Status Routine 08/15/17 07:26 Peripheral IV Care [RC] . DIRECTED 08/15/17 07:30 Lactated Ringers [Ringers, Lactated] 1,000 ml IV ASDIRECTED 08/15/17 18:45 Magnesium Sulfate/Water [Magnesium Sulfate 40 GM in Water 1000 ML] 40 gm in 1, 000 ml IV ASDIRECTED 08/15/17 21:09 Activity as Tolerated [RC] PER UNIT ROUTINE Communication Order [RC] ASDIRECTED Notify Provider Status Change [RC] ASDIRECTED Notify Provider [RC] ASDIRECTED Vital Signs [RC] Q2HR Acetaminophen [Tylenol] 650 mg PO Q4H PRN Benzocaine/Menthol [Dermoplast Pain Relief [place]] See Dose Instructions TOP ASDIRECTED PRN Docusate Sodium [Colace] 100 mg PO BID PRN Ibuprofen [Motrin] 600 mg PO Q6H PRN Lanolin [Lansinoh HPA] See Dose Instructions TOP ASDIRECTED PRN Witch Sania [Tucks] 1 pad TOP ASDIRECTED PRN Assess Lochia [WOMSER] Per Unit Routine Assess Uterine Involution [WOMSER] Per Unit Routine Breast Pump [WOMSER] Per Unit Routine Deep Tendon Reflexes [WOMSER] ASDIRECTED Heat Therapy [OM.PC] PRN Ice Therapy [OM.PC] Per Unit Routine Perineal Care [OM.PC] Per Unit Routine Sitz Bath [OM.PC] Per Unit Routine 08/15/17 Dinner Regular Diet [DIET] 08/16/17 09:00 Sertraline [Zoloft] 50 mg PO DAILY 08/16/17 21:09 Heat Therapy [OM.PC] PRN - Assessment Assessment:: 31 y/o G2 now P2002 PPD#1 from at 37 0/7 wks for preeclampsia - Plan Plan:: for preeclampsia * Magnesium can be discontinued later this PM * Continue close monitoring of BP's * Patient not able to void overnight. Was not notified of this overnight. Asked patient only be allowed another 2 hours and if still not able to void to have najera placed and if volume greater than 300 cc to have najera left in place. Concern that she will have voiding dysfunction after having these episodes of urinary retention. * Continue ice and sitz baths for perineal hematoma * Discharge home tomorrow pending clinical course
--- NOTE | 2017-08-16 08:47 | PCM48HPAN ---
Post Anesthesia Note - EVALUATION WITHIN 48HRS OF ANESTHETIC Vital Signs in Normal Range: Yes Patient Participated in Evaluation: Yes Respiratory Function Stable: Yes Airway Patent: Yes Cardiovascular Function Stable: Yes Hydration Status Stable: Yes Pain Control Satisfactory: Yes Nausea and Vomiting Control Satisfactory: Yes Mental Status Recovered: Yes
[2017-08-16] MEDS: Docusate Sodium 100 MG Cap PO PRN (15:42)
[2017-08-17] MEDS: Docusate Sodium 100 MG Cap PO PRN (07:16)
[2017-08-17] MEDS: Ibuprofen 600 MG Tab PO PRN (07:16)
--- NOTE | 2017-08-17 07:45 | PCM.PNPP ---
- General Info Date of Service: 08/17/17 Functional Status: Reports: Pain Controlled, Tolerating Diet, Ambulating - Review of Systems General: Reports: No Symptoms Pulmonary: Reports: No Symptoms Cardiovascular: Reports: No Symptoms Gastrointestinal: Reports: No Symptoms Genitourinary: Reports: Pain (improved from yesterday ) Musculoskeletal: Reports: No Symptoms Neurological: Reports: No Symptoms - Patient Data Vital Signs - Most Recent: Last Vital Signs Temp 36.1 C 08/16/17 21:16 Pulse 66 08/16/17 23:58 Resp 18 08/16/17 18:00 BP 128/87 08/17/17 03:00 Pulse Ox 96 08/16/17 23:58 Weight - Most Recent: 62.596 kg I&O - Last 24 Hours: Intake & Output 08/16/17 08/17/17 08/17/17 22:59 06:59 14:59 Intake Total 240 Output Total 450 500 400 Balance -210 -500 -400 Med Orders - Current: Current Medications Acetaminophen (Tylenol) 650 mg PO Q4H PRN PRN Reason: mild pain or fever Benzocaine/Menthol (Dermoplast Pain Relief [place]) 0 gm TOP ASDIRECTED PRN PRN Reason: Perineal Comfort Measure Last Admin: 08/16/17 01:17 Dose: 1 canister Docusate Sodium (Colace) 100 mg PO BID PRN PRN Reason: Constipation Last Admin: 08/17/17 07:16 Dose: 100 mg Emollient Ointment (Lansinoh Hpa) 0 gm TOP ASDIRECTED PRN PRN Reason: Sore Nipples Lactated Ringer's (Ringers, Lactated) 1,000 mls @ 40 mls/hr IV ASDIRECTED [facility] Last Admin: 08/16/17 07:05 Dose: 40 mls/hr Magnesium Sulfate (Magnesium Sulfate 40 Gm In Water 1000 Ml) 40 gm in 1,000 mls @ 50 mls/hr IV ASDIRECTED [facility] Last Admin: 08/15/17 19:30 Dose: 50 mls/hr Ibuprofen (Motrin) 600 mg PO Q6H PRN PRN Reason: Mild pain or fever Last Admin: 08/17/17 07:16 Dose: 600 mg Sertraline HCl (Zoloft) 50 mg PO DAILY [facility] Katie Lui (Tucks) 1 pad TOP ASDIRECTED PRN PRN Reason: Hemorrhoid pain Last Admin: 08/15/17 22:00 Dose: 1 container Discontinued Medications Diphenhydramine HCl (Benadryl) 25 mg IVPUSH Q6H PRN PRN Reason: Itching Ephedrine Sulfate (Ephedrine Sulfate) 5 mg IVPUSH ASDIRECTED PRN PRN Reason: HYPOTENTSION Fentanyl (Sublimaze) 100 mcg EPIDUR Q3H PRN PRN Reason: PAIN Last Admin: 08/15/17 13:53 Dose: 100 mcg Fentanyl/Bupivacaine HCl (Fentanyl/Bupivacaine/Ns 2 Mcg-0.125% 100 Ml) 100 ml EPIDUR ASDIRECTED ANEL Last Admin: 08/15/17 13:54 Dose: 100 ml Oxytocin/Lactated Ringer's (Pitocin In Lr 10 Units/1,000 Ml) 10 unit in 1,000 mls @ 12 mls/hr IV TITRATE ANEL; 2 MUNITS/MIN PRN Reason: Protocol Last Titration: 08/15/17 18:22 Dose: 0 munits/min, 0 mls/hr Oxytocin/Lactated Ringer's (Pitocin In Lr 10 Units/1,000 Ml) 10 unit in 1,000 mls @ 500 mls/hr IV .CONTINUOUS ANEL Magnesium Sulfate 2 gm/ Premix 50 mls @ 25 mls/hr IV ONETIME ONE Stop: 08/15/17 20:31 Last Admin: 08/15/17 18:58 Dose: 300 mls/hr Magnesium Sulfate 4 gm/ Premix 100 mls @ 400 mls/hr IV ONETIME ONE Stop: 08/15/17 18:46 Last Admin: 08/15/17 19:17 Dose: 400 mls/hr Nalbuphine HCl (Nubain) 10 mg IVPUSH Q2H PRN PRN Reason: Pain (moderate 4-6) Ondansetron HCl (Zofran) 4 mg IVPUSH Q4H PRN PRN Reason: Nausea/Vomiting Sodium Chloride (Saline Flush) 10 ml FLUSH ASDIRECTED PRN PRN Reason: Keep Vein Open - Infant Interaction Infant Disposition, : in Room with Family Interaction: Holding Infant Feeding: Breastfed Infant; Nursed Well Support Person: - Recovery Exam Fundal Tone: Firm Fundal Level: At Umbilicus Fundal Placement: Midline Lochia Amount: Small, Moderate Lochia Color: Rubra/Red Perineum Description: Edematous, Hematoma Episiotomy/Laceration: Approximated Bladder Status: Indwelling Catheter in Place Urinary Elimination: Indwelling Catheter - Exam General: Alert, Oriented, Cooperative Lungs: Clear to Auscultation, Normal Respiratory Effort Cardiovascular: Regular Rate, Regular Rhythm GI/Abdominal Exam: Soft, Non-Tender Extremities: Normal Inspection Skin: Warm, Dry, Intact Neurological: Reflexes Equal Bilateral Physical Findings Comment:: Perineal laceration continues to improve. Less edematous today than yesterday - Problem List & Annotations (1) 37 weeks gestation of SNOMED Code(s): 18714343 Code(s): Z3A.37 - 37 WEEKS GESTATION OF Status: Acute (2) Preeclampsia SNOMED Code(s): 818135111 Code(s): O14.90 - UNSPECIFIED PRE-ECLAMPSIA, UNSPECIFIED TRIMESTER Status: Acute Qualifiers: Trimester: third trimester Qualified Code(s): O14.93 - Unspecified pre- eclampsia, third trimester (3) Vaginal delivery SNOMED Code(s): 044026355 Code(s): O80 - ENCOUNTER FOR FULL-TERM UNCOMPLICATED DELIVERY Status: Acute - Problem List Review Problem List Initiated/Reviewed/Updated: Yes - My Orders Last 24 Hours: My Active Orders 08/16/17 09:00 Sertraline [Zoloft] 50 mg PO DAILY 08/16/17 21:09 Heat Therapy [OM.PC] PRN 08/17/17 07:36 Communication Order [RC] ASDIRECTED - Assessment Assessment:: 31 y/o G2 now P2002 PPD#2 from at 37 0/7 wks for preeclampsia - Plan Plan:: for preeclampsia * BP's normal to mild range off of magnesium. Will follow up next week for BP check. Aware of signs/symptoms that should prompt sooner evaluation * Did have to have a najera placed yesterday AM. Voiding trial today prior to discharge. * Continue sitz baths for perineal hematoma. Will reassess next week * Discharge home later today
--- NOTE | 2017-08-17 07:45 | PCM.DCSUM1 ---
Discharge Summary - Discharge Data Discharge Date: 08/17/17 Discharge Disposition: Home, Self-Care 01 Condition: Good - Discharge Diagnosis/Problem(s) (1) 37 weeks gestation of SNOMED Code(s): 34402032 ICD Code: Z3A.37 - 37 WEEKS GESTATION OF Status: Acute (2) Preeclampsia SNOMED Code(s): 146652655 ICD Code: O14.90 - UNSPECIFIED PRE-ECLAMPSIA, UNSPECIFIED TRIMESTER Status : Acute Qualifiers: Trimester: third trimester Qualified Code(s): O14.93 - Unspecified pre- eclampsia, third trimester (3) Vaginal delivery SNOMED Code(s): 756903247 ICD Code: O80 - ENCOUNTER FOR FULL-TERM UNCOMPLICATED DELIVERY Status: Acute - Patient Summary/Data Complications: None Consults: None Recommended Follow-up Testing/Procedures: Follow up in 1 week for BP check and assessment of perineal laceration Hospital Course: 31 y/o at 37 0/7 wks presented for IOL for preeclampisa. This was begun with pitocin and AROM. During induction process BP's became severe requiring magnesium initiation. She then underwent an uncomplicated . See delivery note. magnesium was continued for about 18 hours. After discontinuation she did well. Did have some urinary retention requiring straight catheterization after delivery and eventually replacement of najera. This was successfully removed with a voiding trial on PPD#2. She otherwise was meeting all other goals by PPD#2 and so was discharged to home. - Patient Instructions Diet: Regular Diet as Tolerated Activity: As Tolerated Activity, Other: Pelvic Rest for 6 weeks Driving: May Drive Today Showering/Bathing: May Shower Showering/Bathing, Other: May Bathe Notify Provider of: Fever, Increased Pain, Swelling and Redness, Drainage, Nausea and/or Vomiting - Discharge Plan Home Medications: Home Meds Sertraline [Zoloft] 50 mg PO DAILY 11/19/15 [History] Aspirin [Ecotrin] 81 mg PO DAILY 08/15/17 [History] Vits #93/Iron Fum/FA [ Formula Tablet] 1 each PO DAILY [History] Ibuprofen [IJD: Ibuprofen] 600 mg PO Q6H PRN tablet 08/16/17 [Rx] Patient Handouts: Vaginal Delivery, Care After Referrals: Juju Chase MD [Physician] - (1 week for BP check and laceration check ) - Discharge Summary/Plan Comment DC Time >30 min.: No - Patient Data Vitals - Most Recent: Last Vital Signs Temp 36.1 C 08/16/17 21:16 Pulse 66 08/16/17 23:58 Resp 18 08/16/17 18:00 BP 128/87 08/17/17 03:00 Pulse Ox 96 08/16/17 23:58 Weight - Most Recent: 62.596 kg I&O - Last 24 hours: Intake & Output 08/16/17 08/17/17 08/17/17 22:59 06:59 14:59 Intake Total 240 Output Total 450 500 400 Balance -210 -500 -400 Med Orders - Current: Current Medications Acetaminophen (Tylenol) 650 mg PO Q4H PRN PRN Reason: mild pain or fever Benzocaine/Menthol (Dermoplast Pain Relief [place]) 0 gm TOP ASDIRECTED PRN PRN Reason: Perineal Comfort Measure Last Admin: 08/16/17 01:17 Dose: 1 canister Docusate Sodium (Colace) 100 mg PO BID PRN PRN Reason: Constipation Last Admin: 08/17/17 07:16 Dose: 100 mg Emollient Ointment (Lansinoh Hpa) 0 gm TOP ASDIRECTED PRN PRN Reason: Sore Nipples Lactated Ringer's (Ringers, Lactated) 1,000 mls @ 40 mls/hr IV ASDIRECTED [facility] Last Admin: 08/16/17 07:05 Dose: 40 mls/hr Magnesium Sulfate (Magnesium Sulfate 40 Gm In Water 1000 Ml) 40 gm in 1,000 mls @ 50 mls/hr IV ASDIRECTED [facility] Last Admin: 08/15/17 19:30 Dose: 50 mls/hr Ibuprofen (Motrin) 600 mg PO Q6H PRN PRN Reason: Mild pain or fever Last Admin: 08/17/17 07:16 Dose: 600 mg Sertraline HCl (Zoloft) 50 mg PO DAILY [facility] Katie Lui (Tucks) 1 pad TOP ASDIRECTED PRN PRN Reason: Hemorrhoid pain Last Admin: 08/15/17 22:00 Dose: 1 container Discontinued Medications Diphenhydramine HCl (Benadryl) 25 mg IVPUSH Q6H PRN PRN Reason: Itching Ephedrine Sulfate (Ephedrine Sulfate) 5 mg IVPUSH ASDIRECTED PRN PRN Reason: HYPOTENTSION Fentanyl (Sublimaze) 100 mcg EPIDUR Q3H PRN PRN Reason: PAIN Last Admin: 08/15/17 13:53 Dose: 100 mcg Fentanyl/Bupivacaine HCl (Fentanyl/Bupivacaine/Ns 2 Mcg-0.125% 100 Ml) 100 ml EPIDUR ASDIRECTED ANEL Last Admin: 08/15/17 13:54 Dose: 100 ml Oxytocin/Lactated Ringer's (Pitocin In Lr 10 Units/1,000 Ml) 10 unit in 1,000 mls @ 12 mls/hr IV TITRATE ANEL; 2 MUNITS/MIN PRN Reason: Protocol Last Titration: 08/15/17 18:22 Dose: 0 munits/min, 0 mls/hr Oxytocin/Lactated Ringer's (Pitocin In Lr 10 Units/1,000 Ml) 10 unit in 1,000 mls @ 500 mls/hr IV .CONTINUOUS ANEL Magnesium Sulfate 2 gm/ Premix 50 mls @ 25 mls/hr IV ONETIME ONE Stop: 08/15/17 20:31 Last Admin: 08/15/17 18:58 Dose: 300 mls/hr Magnesium Sulfate 4 gm/ Premix 100 mls @ 400 mls/hr IV ONETIME ONE Stop: 08/15/17 18:46 Last Admin: 08/15/17 19:17 Dose: 400 mls/hr Nalbuphine HCl (Nubain) 10 mg IVPUSH Q2H PRN PRN Reason: Pain (moderate 4-6) Ondansetron HCl (Zofran) 4 mg IVPUSH Q4H PRN PRN Reason: Nausea/Vomiting Sodium Chloride (Saline Flush) 10 ml FLUSH ASDIRECTED PRN PRN Reason: Keep Vein Open *Q Meaningful Use (DIS) - VTE *Q VTE Criteria *Q: - Stroke *Q Stroke Criteria *Q: - AMI *Q AMI Criteria *Q:
[2017-08-17] MEDS ORDERED: Magnesium Sulfate/Water 100 ML ONE (10:38)
[2017-08-17] MEDS ORDERED: Magnesium Sulfate/Water 40 GM/1,000 ML BAG ONE (10:38)
[2017-08-17] MEDS ORDERED: Magnesium Sulfate/Water 50 ML ONE (10:38)
[2017-08-17] MEDS: Sertraline 50 MG Tab PO SCH (16:09)
[2017-08-17 16:32] VITALS: BP 116/82
== END 2017-08-17 15:30 | disposition home or self-care (01) | DRG 560 ==
LOC: JD.OB 07:23 → OBSVTOIN 20:08 → JD.OB 20:08
PROVIDERS: ADMIT Obstetrics & Gynecology; ATTEND Obstetrics & Gynecology
PROC: 10E0XZZ Delivery of Products of Conception, External Approach (ICD-10-PCS; principal; 2017-08-15)
PROC: 3E033VJ Introduction of Other Hormone into Peripheral Vein, Percutaneous Approach (ICD-10-PCS; 2017-08-15)
PROC: 10907ZC Drainage of Amniotic Fluid, Therapeutic from Products of Conception, Via Natural or Artificial Opening (ICD-10-PCS; 2017-08-15)
PROC: 0KQM0ZZ Repair Perineum Muscle, Open Approach (ICD-10-PCS; 2017-08-15)
PROC: 00HU33Z Insertion of Infusion Device into Spinal Canal, Percutaneous Approach (ICD-10-PCS; 2017-08-15)
DX: O14.94 Unspecified pre-eclampsia, complicating childbirth (principal); O69.81X0 Labor and delivery complicated by cord around neck, without compression, not applicable or unspecified; Z3A.37 37 weeks gestation of pregnancy; Z37.0 Single live birth; O90.89 Other complications of the puerperium, not elsewhere classified; R33.9 Retention of urine, unspecified; Z88.1 Allergy status to other antibiotic agents; Z86.32 Personal history of gestational diabetes; O70.1 Second degree perineal laceration during delivery
CPT/HCPCS: 01967; 36415; 51701; 51702; 59300; 59409; 81003; 82565; 84450; 84460; 85027; 86850; 86900; 86901; A9270-GY; J2590; J3010; J3475; J7120

== ENCOUNTER 2019-12-16 16:23 | Inpatient (IN) | payer BC ==
[2019-12-16] MEDS ORDERED: Nalbuphine 10 MG/ML Syringe IVPUSH PRN (17:38)
[2019-12-16] MEDS ORDERED: Sodium Chloride 0.9% 10 ML Syringe FLUSH PRN (17:38)
[2019-12-16] MEDS ORDERED: Ondansetron 4 MG/2 ML SDV IVPUSH PRN (17:38)
[2019-12-16] MEDS ORDERED: Oxytocin/Lactated Ringers 10 UNIT/1,000 ML BAG IV SCH ×2 (17:45→18:45)
[2019-12-16] MEDS: Lactated Ringers 1,000 ML IV SCH ×3 (19:41→22:20)
[2019-12-16] MEDS ORDERED: ePHEDrine 50 MG/ML SDV IVPUSH PRN (20:48)
[2019-12-16] MEDS ORDERED: diphenhydrAMINE 50 MG/ML SDV IVPUSH PRN (20:48)
[2019-12-16] MEDS ORDERED: Bupivacaine/fentaNYL/NS 100 ML Bag EPIDUR PRN (20:48)
[2019-12-16] MEDS ORDERED: fentaNYL 100 MCG/2 ML SDV EPIDUR PRN (20:48)
--- NOTE | 2019-12-16 21:36 | PCM.PREANE ---
Preanesthetic Assessment - Procedure Proposed Procedure: MANJEET - Anesthesia/Transfusion/Family Hx Anesthesia History: Prior Anesthesia Without Reaction Family History of Anesthesia Reaction: No Transfusion History: No Prior Transfusion(s) Anesthesia/Transfusion Comment: No previous difficulties with intubation or with anesthesia - Review of Systems General: No Symptoms Pulmonary: No Symptoms Cardiovascular: No Symptoms Gastrointestinal: No Symptoms Neurological: No Symptoms Other: Reports: None - Physical Assessment NPO Status Date: 12/16/19 NPO Status Time: 18:00 (Full stomach) Vital Signs: Last Vital Signs Temp 36.7 C 12/16/19 16:30 Pulse 81 12/16/19 16:30 Resp 14 12/16/19 16:30 BP 146/90 H 12/16/19 16:30 Pulse Ox 97 12/16/19 16:30 Height: 5 ft 1 in Weight: 66.587 kg ASA Class: 2 Mental Status: Alert & Oriented x3 Airway Class: Mallampati = 1 Dentition: Reports: Normal Dentition ROM/Head Extension: Full Lungs: Clear to Auscultation, Normal Respiratory Effort Cardiovascular: Regular Rate, Regular Rhythm, Other (pre-eclamptic) - Lab Values: Laboratory Last Values WBC 9.73 K/mm3 (3.98-10.04) 12/16/19 17:53 RBC 3.97 M/mm3 (3.98-5.22) L 12/16/19 17:53 Hgb 12.6 gm/dl (11.2-15.7) 12/16/19 17:53 Hct 37.2 % (34.1-44.9) 12/16/19 17:53 MCV 93.7 fl (79.4-94.8) 12/16/19 17:53 MCH 31.7 pg (25.6-32.2) 12/16/19 17:53 MCHC 33.9 g/dl (32.2-35.5) 12/16/19 17:53 RDW Std Deviation 45.9 fL (36.4-46.3) 12/16/19 17:53 Plt Count 237 K/mm3 (182-369) 12/16/19 17:53 MPV 9.6 fl (9.4-12.3) 12/16/19 17:53 Neut % (Auto) 70.9 % (34.0-71.1) 12/16/19 17:53 Lymph % (Auto) 21.1 % (19.3-51.7) 12/16/19 17:53 [place] % (Auto) 7.2 % (4.7-12.5) 12/16/19 17:53 Eos % (Auto) 0.4 (0.7-5.8) L 12/16/19 17:53 Baso % (Auto) 0.1 % (0.1-1.2) 12/16/19 17:53 Neut # (Auto) 6.90 K/mm3 (1.56-6.13) H 12/16/19 17:53 Lymph # (Auto) 2.05 K/mm3 (1.18-3.74) 12/16/19 17:53 [place] # (Auto) 0.70 K/mm3 (0.24-0.36) H 12/16/19 17:53 Eos # (Auto) 0.04 K/mm3 (0.04-0.36) 12/16/19 17:53 Baso # (Auto) 0.01 K/mm3 (0.01-0.08) 12/16/19 17:53 Fibrinogen 471 mg/dL (187-446) H 12/16/19 18:34 Fibrin Degrad Products < 5 ug/ml ug/mL (<5) 12/16/19 18:34 BUN 12 mg/dL (7-18) 12/16/19 17:53 Creatinine 0.7 mg/dL (0.55-1.02) 12/16/19 17:53 Est Cr Clr Drug Dosing 84.65 mL/min 12/16/19 17:53 Estimated GFR (MDRD) > 60 mL/min (>60) 12/16/19 17:53 Uric Acid 5.9 mg/dL (2.6-6.0) 12/16/19 17:53 AST 16 U/L (15-37) 12/16/19 17:53 ALT 16 U/L (14-59) 12/16/19 17:53 Lactate Dehydrogenase 209 U/L (81-234) 12/16/19 17:53 Ur Random Creatinine 47.9 mg/dL (30.0-125.0) 12/16/19 19:05 U Random Total Protein 14.3 mg/dL (0.0-11.8) H 12/16/19 19:05 Protein/Creatinin Ratio 298.5 mg/g (0-149) H 12/16/19 19:05 Membrane Rupture Negative 12/16/19 16:47 RPR Non-reactive (NONREACTIVE) 12/16/19 17:53 Blood Type O POSITIVE 12/16/19 17:53 Gel Antibody Screen Negative 12/16/19 17:53 - Allergies Allergies/Adverse Reactions: Allergies Allergy/AdvReac Type Severity Reaction Status Date / Time amoxicillin Allergy Mild Hives Verified 12/16/19 16:30 cephalexin [From Keflex] Allergy Hives Verified 12/16/19 16:30 - Acknowledgements Anesthesia Type Planned: Epidural Pt an Appropriate Candidate for the Planned Anesthesia: Yes Alternatives and Risks of Anesthesia Discussed w Pt/Guardian: Yes Pt/Guardian Understands and Agrees with Anesthesia Plan: Yes PreAnesthesia Questionnaire Cardiovascular History: Reports: Other (See Below) Other Cardiovascular History: PIH with previous pregnancies Respiratory History: Reports: Asthma Other Respiratory History: pt states asthma is very mild and does not use an inhaler Gastrointestinal History: Reports: GERD 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: , Spontaneous Other OB/BYN History: hx of gest diabetes and preeclampsia with previous Psychiatric History: Reports: Anxiety, Other (See Below) Other Psychiatric History: insomnia Endocrine/Metabolic History: Reports: Diabetes, Gestational, Other (See Below) Other Endocrine/Metabolic History: with first - Infectious Disease History Infectious Disease History: Reports: Chicken Pox - Past Surgical History HEENT Surgical History: Reports: Adenoidectomy, Oral Surgery, Tonsillectomy - SUBSTANCE USE Smoking Status *Q: Never Smoker Recreational Drug Use History: No - HOME MEDS Home Medications: Home Meds Sertraline [Zoloft] 50 mg PO DAILY 11/19/15 [History] Aspirin [Ecotrin EC] 81 mg PO DAILY 08/15/17 [History] Vits #93/Iron Fum/FA [ Formula Tablet] 1 each PO DAILY [History] Famotidine [Pepcid] 20 mg PO DAILY 11/26/19 [History] Ferrous Sulfate 325 mg PO DAILY 11/26/19 [History] Zolpidem Tartrate [Ambien] 5 mg PO BEDTIME PRN 11/26/19 [History] - CURRENT (IN HOUSE) MEDS Current Meds: Current Medications Diphenhydramine HCl (Benadryl) 25 mg IVPUSH Q6H PRN PRN Reason: pruritis Ephedrine Sulfate (Ephedrine Sulfate) 5 mg IVPUSH ASDIRECTED PRN PRN Reason: Hypotension Fentanyl (Sublimaze) 100 mcg EPIDUR Q3H PRN PRN Reason: Pain Last Admin: 12/16/19 21:16 Dose: 100 mcg Fentanyl/Bupivacaine HCl (Fentanyl/Bupivacaine/Ns 2 Mcg-0.125% 100 Ml) 100 ml EPIDUR ASDIRECTED PRN PRN Reason: Pain Last Admin: 12/16/19 21:17 Dose: 100 ml Lactated Ringer's (Ringers, Lactated) 1,000 mls @ 100 mls/hr IV ASDIRECTED ANEL Last Admin: 12/16/19 21:16 Dose: 999 mls/hr Oxytocin/Lactated Ringer's (Pitocin In Lr 10 Units/1,000 Ml) 10 unit in 1,000 mls @ 500 mls/hr IV .CONTINUOUS ANEL Oxytocin/Lactated Ringer's (Pitocin In Lr 10 Units/1,000 Ml) 10 unit in 1,000 mls @ 12 mls/hr IV TITRATE ANEL; Protocol Last Admin: 12/16/19 19:48 Dose: 2 munits/min, 12 mls/hr Nalbuphine HCl (Nubain) 10 mg IVPUSH Q2H PRN PRN Reason: Pain Ondansetron HCl (Zofran) 4 mg IVPUSH Q4H PRN PRN Reason: Nausea/Vomiting Sodium Chloride (Saline Flush) 10 ml FLUSH ASDIRECTED PRN PRN Reason: Keep Vein Open
[2019-12-16] MEDS ORDERED: Magnesium Sulfate/Water 4 GM in Premix Bag 1 BAG IV ONE (21:49)
[2019-12-16] MEDS ORDERED: Magnesium Sulfate/Water 2 GM in Premix Bag 1 BAG IV ONE (21:49)
--- NOTE | 2019-12-16 22:15 | PCM.LDHP ---
L&D History of Present Illness - General Date of Service: 12/16/19 Admit Problem/Dx: Patient Status Order with Admit Dx/Problem 12/16/19 16:53 Patient Status [ADT] Routine 12/16/19 17:39 Patient Status [ADT] Routine Admission Diagnosis/Problem Admission Diagnosis/Problem 12/16/19 21:58 Rosangela is a 34-year-old 4 para 2012 white female was evaluated in labor and delivery on 12/16/2023 multiple reasons. She initially thought she had leakage of amniotic fluid vaginally and contractions. Upon admission however was noted to be prasanth and had elevated blood pressures and hyperreactive reflexes. Findings consistent with additional hypertension with superimposed preeclampsia. Source of Information: Patient History Limitations: Reports: No Limitations - History of Present Illness Introduction:: Rosangela is a 34-year-old 4 para 2012 white female was evaluated in labor and delivery on 12/16/2023 multiple reasons. She initially thought she had leakage of amniotic fluid vaginally and contractions. On evaluation in labor and delivery she was noted be prasanth every 7 minutes initially then increased over the course of 2 hours to every 3-5 minutes. Blood pressures were noted to be in the 140s to 150s over 90s to 100s. Her deep tendon reflexes were brisk at +3 over 4 bilaterally in lower extremities and these increased over the first 2-3 hours to mild clonus in her right lower extremity. She is admitted for augmentation of labor to facilitate delivery with the diagnosis of hypertension in with superimposed preeclampsia. Her cervix is dilated to 3 cm, 90% effaced, -3 station, midposition, soft. This represents an increase from 2-3 cm and ballotable upon admission per nursing evaluation. Laboratory testing shows essentially normal liver function studies and uric acid which is elevated. 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 She's had 2 full-term pregnancies that delivered at 37 weeks. Both of these were induced for preeclampsia. She had normal spontaneous vaginal delivery 2 with babies in the 6+ pound range. His been on baby aspirin during the course of this . Her initial blood pressure elevation was noted at approximately 34 weeks gestation. It is been borderline or upper range of normal since that time on various evaluations. Patient denies any sexually transmitted diseases or abnormal Pap smears. course: Patient was first seen at 10 weeks and 2 days on 06/12/2019. She was seen on a regular basis from . Weight gain has been 16 pounds from 128-144 pounds. Fundal height has correlated well with gestational age and she has reported good activity. She received her influenza and Tdap immunizations during the . Did get betamethasone 2 doses in an test patient of possible early induction for preeclampsia/hypertension. labs: Patient's blood is O+. First trimester labs were positive for rubella. Is negative for syphilis and hepatitis B surface antigen and negative GC and chlamydia tests. Patient had an abnormal 1 hour GTT but a normal three- hour GTT, normal TSH and group B strep screen was negative. She did undergo genetic screening with an NIPS which returned negative for aneuploidy. 34 weeks patient blood pressure is 148/94 and was elevated for the first time at thi gestational age. Allergies: 1. Environmental allergies 2. Cephalexin which causes hives 3. Amoxicillin which causes a rash Medications: 1. Baby mg by mouth daily for preeclampsia prophylaxis 2. Sertraline 50 mg by mouth daily for anxiety 3. vitamins daily 4. Ferrous sulfate 325 mg by mouth daily 5. Pepcid 20 mg every night 6. Patient has used Tylenol No. 3 one tablet every 6 hours when necessary for headache. 7. Records show patient has used Ambien 5 mg by mouth daily at bedtime when necessary first insomnia. Past medical history: 1. Anxiety on meds 2. 2 3. Preeclampsia with 2 previous pregnancies Past surgical history: 1. Tonsillectomy 2. Leonard teeth extraction 3. Appendectomy Family history: Parents are alive and well. Patient has 5 brothers who are alive and well. Paternal grandparents are both alive and have had heart surgeries. Paternal grandmother of colon cancer in her 40s. Paternal grandfather had leukemia and in his 80s. There is no family history of bleeding disorders, blood clotting disorders, anesthesia or asthma problems. No -related problems noted either. Social history: She is , is Adalberto. They live in [place], [place]. 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 She does not use any significant most alcohol, drugs or tobacco. is a rancher. Review of systems: In general patient's only concern is possible loss of vaginal fluid and contractions upon admission. Has reported good activity and no signs of preeclampsia at this time. Skin: Negative Lungs: No infectious symptoms or shortness of breath Cardiovascular: No chest pain or exercise intolerance Breasts: Changes associated with . GI: Negative : changes. Musculoskeletal: Negative Neurological: Negative. She specifically denies headaches, vision changes, symptoms associated with preeclampsia. In general the patient is well-developed, well-nourished, pleasant female of stated age in no acute distress. She reports good activity. Blood pressures systolically have been running in the 141-156 range with 1 systolic blood pressure in the 160 range. Her diastolic BPs have been in the 90 to low 100s. Skin is warm dry without lesions. HEENT, neck and back within normal limits. Lungs are clear with good breath sounds in all lung ramirez. Cardiovascular exam shows regular and rhythm without murmurs. Breast exam is deferred at this time. Abdomen is gravid with fundal height consistent with dates. Baby in vertex presentation. Genital exam shows cervix to be 3 cm dilated, 90% effaced, -3 station, mid position, soft. Baby is confirmed via an vertex presentation. Extremities show minimal edema. Neurological exam-patient. She is alert and oriented 3. Deep tendon reflexes over the course of initial evaluation extending to approximately 2 hours later went from 3+/4 bilaterally in lower extremities to several beats of clonus in the right lower extremity at the second evaluation. Pain Score: 6 - Related Data Allergies/Adverse Reactions: Allergies Allergy/AdvReac Type Severity Reaction Status Date / Time amoxicillin Allergy Mild Hives Verified 12/16/19 16:30 cephalexin [From Keflex] Allergy Hives Verified 12/16/19 16:30 Home Medications: Home Meds Sertraline [Zoloft] 50 mg PO DAILY 11/19/15 [History] Aspirin [Ecotrin EC] 81 mg PO DAILY 08/15/17 [History] Vits #93/Iron Fum/FA [ Formula Tablet] 1 each PO DAILY [History] Famotidine [Pepcid] 20 mg PO DAILY 11/26/19 [History] Ferrous Sulfate 325 mg PO DAILY 11/26/19 [History] Zolpidem Tartrate [Ambien] 5 mg PO BEDTIME PRN 11/26/19 [History] Past Medical History Cardiovascular History: Reports: Other (See Below) Other Cardiovascular History: PIH with previous pregnancies Respiratory History: Reports: Asthma Other Respiratory History: pt states asthma is very mild and does not use an inhaler Gastrointestinal History: Reports: GERD 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: , Spontaneous Other OB/BYN History: hx of gest diabetes and preeclampsia with previous Psychiatric History: Reports: Anxiety, Other (See Below) Other Psychiatric History: insomnia Endocrine/Metabolic History: Reports: Diabetes, Gestational, Other (See Below) Other Endocrine/Metabolic History: with first - Infectious Disease History Infectious Disease History: Reports: Chicken Pox - Past Surgical History HEENT Surgical History: Reports: Adenoidectomy, Oral Surgery, Tonsillectomy Social & Family History - Tobacco Use Smoking Status *Q: Never Smoker - Caffeine Use Caffeine Use: Reports: None - Recreational Drug Use Recreational Drug Use: No H&P Review of Systems - Review of Systems: Review Of Systems: See Below L&D Exam - Exam Exam: See Below - Vital Signs Vital Signs: Last Vital Signs Temp 36.7 C 12/16/19 16:30 Pulse 81 12/16/19 16:30 Resp 14 12/16/19 16:30 BP 146/90 H 12/16/19 16:30 Pulse Ox 97 12/16/19 16:30 Weight: 66.587 kg - Patient Data Lab Results Last 24 hrs: Laboratory Results - last 24 hr 12/16/19 12/16/19 12/16/19 Range/Units 16:47 17:53 17:53 WBC 9.73 (3.98-10.04) K/mm3 RBC 3.97 L (3.98-5.22) M/mm3 Hgb 12.6 (11.2-15.7) gm/dl Hct 37.2 (34.1-44.9) % MCV 93.7 (79.4-94.8) fl MCH 31.7 (25.6-32.2) pg MCHC 33.9 (32.2-35.5) g/dl RDW Std Deviation 45.9 (36.4-46.3) fL Plt Count 237 (182-369) K/mm3 MPV 9.6 (9.4-12.3) fl Neut % (Auto) 70.9 (34.0-71.1) % Lymph % (Auto) 21.1 (19.3-51.7) % [place] % (Auto) 7.2 (4.7-12.5) % Eos % (Auto) 0.4 L (0.7-5.8) Baso % (Auto) 0.1 (0.1-1.2) % Neut # (Auto) 6.90 H (1.56-6.13) K/mm3 Lymph # (Auto) 2.05 (1.18-3.74) K/mm3 [place] # (Auto) 0.70 H (0.24-0.36) K/mm3 Eos # (Auto) 0.04 (0.04-0.36) K/mm3 Baso # (Auto) 0.01 (0.01-0.08) K/mm3 Fibrinogen (187-446) mg/dL Fibrin Degrad Products (<5) ug/mL BUN (7-18) mg/dL Creatinine (0.55-1.02) mg/dL Est Cr Clr Drug Dosing mL/min Estimated GFR (MDRD) (>60) mL/min Uric Acid (2.6-6.0) mg/dL AST (15-37) U/L ALT (14-59) U/L Lactate Dehydrogenase (81-234) U/L Ur Random Creatinine (30.0-125.0) mg/dL U Random Total Protein (0.0-11.8) mg/dL Protein/Creatinin Ratio (0-149) mg/g Membrane Rupture Negative RPR (NONREACTIVE) Blood Type O POSITIVE Gel Antibody Screen Negative 12/16/19 12/16/19 12/16/19 Range/Units 17:53 17:53 18:34 WBC (3.98-10.04) K/mm3 RBC (3.98-5.22) M/mm3 Hgb (11.2-15.7) gm/dl Hct (34.1-44.9) % MCV (79.4-94.8) fl MCH (25.6-32.2) pg MCHC (32.2-35.5) g/dl RDW Std Deviation (36.4-46.3) fL Plt Count (182-369) K/mm3 MPV (9.4-12.3) fl Neut % (Auto) (34.0-71.1) % Lymph % (Auto) (19.3-51.7) % [place] % (Auto) (4.7-12.5) % Eos % (Auto) (0.7-5.8) Baso % (Auto) (0.1-1.2) % Neut # (Auto) (1.56-6.13) K/mm3 Lymph # (Auto) (1.18-3.74) K/mm3 [place] # (Auto) (0.24-0.36) K/mm3 Eos # (Auto) (0.04-0.36) K/mm3 Baso # (Auto) (0.01-0.08) K/mm3 Fibrinogen 471 H (187-446) mg/dL Fibrin Degrad Products < 5 ug/ml (<5) ug/mL BUN 12 (7-18) mg/dL Creatinine 0.7 (0.55-1.02) mg/dL Est Cr Clr Drug Dosing 84.65 mL/min Estimated GFR (MDRD) > 60 (>60) mL/min Uric Acid 5.9 (2.6-6.0) mg/dL AST 16 (15-37) U/L ALT 16 (14-59) U/L Lactate Dehydrogenase 209 (81-234) U/L Ur Random Creatinine (30.0-125.0) mg/dL U Random Total Protein (0.0-11.8) mg/dL Protein/Creatinin Ratio (0-149) mg/g Membrane Rupture RPR Non-reactive (NONREACTIVE) Blood Type Gel Antibody Screen 12/16/19 Range/Units 19:05 WBC (3.98-10.04) K/mm3 RBC (3.98-5.22) M/mm3 Hgb (11.2-15.7) gm/dl Hct (34.1-44.9) % MCV (79.4-94.8) fl MCH (25.6-32.2) pg MCHC (32.2-35.5) g/dl RDW Std Deviation (36.4-46.3) fL Plt Count (182-369) K/mm3 MPV (9.4-12.3) fl Neut % (Auto) (34.0-71.1) % Lymph % (Auto) (19.3-51.7) % [place] % (Auto) (4.7-12.5) % Eos % (Auto) (0.7-5.8) Baso % (Auto) (0.1-1.2) % Neut # (Auto) (1.56-6.13) K/mm3 Lymph # (Auto) (1.18-3.74) K/mm3 [place] # (Auto) (0.24-0.36) K/mm3 Eos # (Auto) (0.04-0.36) K/mm3 Baso # (Auto) (0.01-0.08) K/mm3 Fibrinogen (187-446) mg/dL Fibrin Degrad Products (<5) ug/mL BUN (7-18) mg/dL Creatinine (0.55-1.02) mg/dL Est Cr Clr Drug Dosing mL/min Estimated GFR (MDRD) (>60) mL/min Uric Acid (2.6-6.0) mg/dL AST (15-37) U/L ALT (14-59) U/L Lactate Dehydrogenase (81-234) U/L Ur Random Creatinine 47.9 (30.0-125.0) mg/dL U Random Total Protein 14.3 H (0.0-11.8) mg/dL Protein/Creatinin Ratio 298.5 H (0-149) mg/g Membrane Rupture RPR (NONREACTIVE) Blood Type Gel Antibody Screen Result Diagrams: 12/16/19 17:53 12/16/19 17:53 Problem List Initiated/Reviewed/Updated: Yes Orders Last 24hrs: Active Orders 24 hr Category Date Time Status Patient Status [ADT] Routine ADT 12/16/19 17:39 Active Activity as Tolerated [RC] PFP Care 12/16/19 17:39 Active Communication Order [RC] ASDIRECTED Care 12/16/19 17:39 Active Communication Order [RC] ASDIRECTED Care 12/16/19 21:53 Active Heart Tones [RC] ASDIRECTED Care 12/16/19 17:39 Active Non Stress Test [RC] PER UNIT ROUTINE Care 12/16/19 16:53 Active Notify Provider [RC] ASDIRECTED Care 12/16/19 20:48 Active Notify Provider [RC] PFP Care 12/16/19 17:39 Active Notify Provider [RC] PRN Care 12/16/19 17:39 Active Peripheral IV Care [RC] . DIRECTED Care 12/16/19 17:39 Active Vital Signs [RC] PER UNIT ROUTINE Care 12/16/19 16:53 Active Regular Diet [DIET] Diet 12/16/19 Dinner Active MAGNESIUM [CHEM] Q6H Lab 12/17/19 05:00 Ordered MAGNESIUM [CHEM] Q6H Lab 12/17/19 11:00 Ordered MAGNESIUM [CHEM] Q6H Lab 12/17/19 17:00 Ordered MAGNESIUM [CHEM] Q6H Lab 12/17/19 23:00 Ordered MAGNESIUM [CHEM] Q6H Lab 12/18/19 05:00 Ordered MAGNESIUM [CHEM] Timed Lab 12/16/19 23:00 Ordered Bupivacaine/fentaNYL/NS [fentaNYL/Bupivacaine/NS 2 MCG- Med 12/16/19 20:48 Active 0.125% 100 ML] 100 ml EPIDUR ASDIRECTED PRN Lactated Ringers [Ringers, Lactated] 1,000 ml Med 12/16/19 17:45 Active IV ASDIRECTED Magnesium Sulfate/Water [Magnesium Sulfate in Water Med 12/16/19 22:00 Active Premix] 40 gm in 1,000 ml IV ASDIRECTED Magnesium Sulfate/Water [Magnesium Sulfate in Water Med 12/16/19 21:49 Active Premix] 2 gm Premix Bag 1 bag IV ONETIME Magnesium Sulfate/Water [Magnesium Sulfate in Water Med 12/16/19 21:49 Active Premix] 4 gm Premix Bag 1 bag IV ONETIME Nalbuphine [Nubain] Med 12/16/19 17:38 Active 10 mg IVPUSH Q2H PRN Ondansetron [Zofran] Med 12/16/19 17:38 Active 4 mg IVPUSH Q4H PRN Oxytocin/Lactated Ringers [Pitocin in LR 10 Units/1,000 Med 12/16/19 17:45 Active ML] 10 unit in 1,000 ml IV .CONTINUOUS Oxytocin/Lactated Ringers [Pitocin in LR 10 Units/1,000 Med 12/16/19 18:45 Active ML] 10 unit in 1,000 ml IV TITRATE Sodium Chloride 0.9% [Saline Flush] Med 12/16/19 17:38 Active 10 ml FLUSH ASDIRECTED PRN diphenhydrAMINE [Benadryl] Med 12/16/19 20:48 Active 25 mg IVPUSH Q6H PRN ePHEDrine [ePHEDrine sulfate] Med 12/16/19 20:48 Active 5 mg IVPUSH ASDIRECTED PRN fentaNYL [Sublimaze] Med 12/16/19 20:48 Active 100 mcg EPIDUR Q3H PRN Electronic Heart Tones Ext w TOCO [WOMSER] Oth 12/16/19 17:39 Ordered Routine Electronic Heart Tones Internal [WOMSER] Per Unit Oth 12/16/19 17:39 Ordered Routine PIH Panel [OM.PC] Stat Oth 12/16/19 18:17 Ordered Peripheral IV Insertion Adult [OM.PC] Routine Oth 12/16/19 17:39 Ordered Resuscitation Status Routine Resus Stat 12/16/19 16:53 Ordered Medication Orders Diphenhydramine HCl (Benadryl) 25 mg IVPUSH Q6H PRN PRN Reason: pruritis Ephedrine Sulfate (Ephedrine Sulfate) 5 mg IVPUSH ASDIRECTED PRN PRN Reason: Hypotension Fentanyl (Sublimaze) 100 mcg EPIDUR Q3H PRN PRN Reason: Pain Last Admin: 12/16/19 21:16 Dose: 100 mcg Fentanyl/Bupivacaine HCl (Fentanyl/Bupivacaine/Ns 2 Mcg-0.125% 100 Ml) 100 ml EPIDUR ASDIRECTED PRN PRN Reason: Pain Last Admin: 12/16/19 21:17 Dose: 100 ml Lactated Ringer's (Ringers, Lactated) 1,000 mls @ 100 mls/hr IV ASDIRECTED ANEL Last Admin: 12/16/19 21:16 Dose: 999 mls/hr Infusion: 12/16/19 21:16 Dose: 999 mls/hr Infusion: 12/16/19 20:35 Dose: 999 mls/hr Admin: 12/16/19 19:41 Dose: 100 mls/hr Oxytocin/Lactated Ringer's (Pitocin In Lr 10 Units/1,000 Ml) 10 unit in 1,000 mls @ 500 mls/hr IV .CONTINUOUS ANEL Oxytocin/Lactated Ringer's (Pitocin In Lr 10 Units/1,000 Ml) 10 unit in 1,000 mls @ 12 mls/hr IV TITRATE ANEL; Protocol Last Admin: 12/16/19 19:48 Dose: 2 munits/min, 12 mls/hr Magnesium Sulfate (Magnesium Sulfate In Water Premix) 40 gm in 1,000 mls @ 50 mls/hr IV ASDIRECTED [facility] Magnesium Sulfate 4 gm/ Premix 50 mls @ 200 mls/hr IV ONETIME ONE Stop: 12/16/19 22:03 Nalbuphine HCl (Nubain) 10 mg IVPUSH Q2H PRN PRN Reason: Pain Ondansetron HCl (Zofran) 4 mg IVPUSH Q4H PRN PRN Reason: Nausea/Vomiting Sodium Chloride (Saline Flush) 10 ml FLUSH ASDIRECTED PRN PRN Reason: Keep Vein Open Assessment/Plan Comment:: 1. 37-0/7 week intrauterine , she was superimposed preeclampsia without severe features but appearing to have progressed in nature over the course of her early evaluation in labor and delivery. 2. Group B strep screen negative 3. Risk factors for the include history of preeclampsia with previous 2 pregnancies, increased distance from the hospital as she lives in [place], [place], loss 1, anxiety in on meds, asthma which patient reports has not been worsening during the course of . 4. Patient desires epidural for labor analgesia 5. Laboratory testing shows normal liver function studies but elevated casted 6. Deep tendon reflexes are increased consistent with preeclampsia 7. Patient received her influenza and her Tdap immunization during 8. Patient plans to breast-feed as she has with her last 2 pregnancies. 9. Allergic to cephalosporins and to penicillins. 10. Patient has received a course of betamethasone 12 mg IM 2 doses earlier in the in prophylaxis of possible need to induce early because of history of preeclampsia with first 2 pregnancies. Plan: 1. Pitocin/artificial rupture membranes augmentation of labor with resultant clear amniotic fluid. 2. Because of the increase in deep tendon reflexes and worsening blood pressures have initiated magnesium sulfate therapy per protocol with a bolus of 6 g initially followed by maintenance dose of 2 g per hour. We will obtain levels on a regular basis including right after bolus and every 6 hours thereafter. We'll maintain between levels of 4 and 6. 3. Epidural per patient desire 4. Support patient's breast feeding plans 5. Have obtain preeclampsia labs as reported above 6. RPR per protocol 7. Anticipate normal spontaneous vaginal delivery.
[2019-12-16] MEDS: Magnesium Sulfate/Water 40 GM/1,000 ML BAG IV SCH ×2 (22:23→22:35)
--- NOTE | 2019-12-16 23:12 | PCM.SN.2 ---
- Free Text/Narrative Note: Previous epidural was proving ineffective, especially on the left, so I elected to pull the previous catheter and repeat MANJEET. This time she is having a much more dense and uniform epidural. I also dosed her with a total of 8 mL of 2% lidocaine in 1:200,000 epinephrine. Following this she needed a one time bolus of 10 mg ephedrine to mitigate nausea and relatively low BP for where she has been due to PIH. Uterine blood flow appears to remain in tact.
[2019-12-17] MEDS ORDERED: Lidocaine 2% with EPINEPHrine 1:200,000 20 ML SDV ONE
--- NOTE | 2019-12-17 02:11 | PCM.SN.2 ---
- Free Text/Narrative Note: Rosangela is a 34-year-old 4 para 2013 white female was evaluated in labor and delivery on 12/16/2023 multiple reasons. She initially thought she had leakage of amniotic fluid vaginally and contractions. Upon admission however was noted to be prasanth and had elevated blood pressures and hyperreactive reflexes. Findings consistent with additional hypertension with superimposed preeclampsia. Patient was started on Pitocin for augmentation, dilated her cervix to 3-4 cm and brought the head down well against the cervix. She underwent artificial rupture membranes with resultant clear amniotic fluid. Her reflexes increased to mild clonus in the right lower extremity and patient was then started on magnesium sulfate with a bolus of 6 g and a maintenance rate of 2 g per hour thereafter. Shortly after the bolus of magnesium level was obtained and was 4.6. Shortly thereafter she had an epidural placed for labor analgesia. This had to be replaced because of less than optimal effectiveness. The second epidural she received good analgesia. She continued in labor and became completely dilated at approximately 0100 hrs. 11/27/2019. At 138 hours she delivered a viable, suh, male infant with Apgars of 6 and 9, a weight of 3070 g (6 lbs. 12 oz.), a length of 19 inches in a occiput anterior position. Patient was placed on mom's abdomen, nose and mouth were bulb suctioned. Pitocin was increased to 500 mL per hour with routine Pitocin solution to facilitate increase in tone and decreased likelihood of bleeding. The cord was allowed to pulsate times approximately 2-3 minutes and then was clamped 2 and cut by the baby's father Adalberto. Cord was obtained. The placenta then delivered in a Simmons presentation, appeared intact and complete and was discarded per patient desire. The patient was noted to have a superficial epithelial tear at approximately the 7 o'clock position of the perineum. This was reapproximated with 2 figure-of -eight sutures of 3-0 Monocryl. Labor epidural analgesia was used for anesthesia for this repair. Patient tolerated this well. Estimated blood loss was 200 mL. Patient plans to breast-feed. Magnesium sulfate will be continued added rate of 2 g per hour for 24 hours . Condition: Good
[2019-12-17] MEDS ORDERED: Witch Hazel Medicated Pads 40/Jar TOP PRN (02:37)
[2019-12-17] MEDS ORDERED: Magnesium Sulfate/Water 2 GM in Premix Bag 1 BAG IV SCH (02:37)
[2019-12-17] MEDS ORDERED: Benzocaine/Menthol 20%-0.5% Spray 56 GM Canister TOP PRN (02:37)
[2019-12-17] MEDS: Ibuprofen 600 MG Tab PO PRN ×6 (02:50→23:55)
[2019-12-17] MEDS ORDERED: Magnesium Sulfate/Water 40 GM/1,000 ML BAG IV SCH (03:00)
[2019-12-17] MEDS: Docusate Sodium 100 MG Cap PO PRN (07:41)
[2019-12-17] MEDS: Prenatal Multivitamin with Calcium/Folic Acid/Iron Tab PO SCH (09:21)
[2019-12-17] MEDS: Sertraline 50 MG Tab PO SCH (09:21)
[2019-12-17] MEDS ORDERED: Acetaminophen/oxyCODONE 325-5 MG Tab PO ONE (17:32)
[2019-12-17] MEDS: Acetaminophen 325 MG Tab PO PRN (23:56)
[2019-12-18] MEDS: Acetaminophen 325 MG Tab PO PRN (03:56)
[2019-12-18] MEDS: Ibuprofen 600 MG Tab PO PRN ×2 (03:57→08:41)
[2019-12-18 08:33] VITALS: PULSE 82
[2019-12-18] MEDS: Prenatal Multivitamin with Calcium/Folic Acid/Iron Tab PO SCH (08:41)
[2019-12-18] MEDS: Docusate Sodium 100 MG Cap PO PRN (08:41)
[2019-12-18] MEDS: Sertraline 50 MG Tab PO SCH (11:03)
[2019-12-18 12:20] VITALS: BP 133/92
--- NOTE | 2019-12-18 12:20 | PCM.DCSUM1 ---
Discharge Summary - Hospital Course Free Text/Narrative:: Rosangela is a 34-year-old 4 para 2013 white female was evaluated in labor and delivery on 12/16/2023 multiple reasons. She initially thought she had leakage of amniotic fluid vaginally and contractions. Upon admission however was noted to be prasanth and had elevated blood pressures and hyperreactive reflexes. Findings consistent with additional hypertension with superimposed preeclampsia. Patient was started on Pitocin for augmentation, dilated her cervix to 3-4 cm and brought the head down well against the cervix. She underwent artificial rupture membranes with resultant clear amniotic fluid. Her reflexes increased to mild clonus in the right lower extremity and patient was then started on magnesium sulfate with a bolus of 6 g and a maintenance rate of 2 g per hour thereafter. Shortly after the bolus of magnesium level was obtained and was 4.6. Shortly thereafter she had an epidural placed for labor analgesia. This had to be replaced because of less than optimal effectiveness. The second epidural she received good analgesia. She continued in labor and became completely dilated at approximately 0100 hrs. 11/27/2019. At 138 hours she delivered a viable, suh, male with Apgars of 6 and 9, a weight of 3070 g (6 lbs. 12 oz.), a length of 19 inches in a occiput anterior position. Patient was placed on mom's abdomen, nose and mouth were bulb suctioned. Pitocin was increased to 500 mL per hour with routine Pitocin solution to facilitate increase in tone and decreased likelihood of bleeding. The cord was allowed to pulsate times approximately 2-3 minutes and then was clamped 2 and cut by the baby's father Adalberto. Cord was obtained. The placenta then delivered in a Simmons presentation, appeared intact and complete and was discarded per patient desire. The patient was noted to have a superficial epithelial tear at approximately the 7 o'clock position of the perineum. This was reapproximated with 2 figure-of -eight sutures of 3-0 Monocryl. Labor epidural analgesia was used for anesthesia for this repair. Patient tolerated this well. Estimated blood loss was 200 mL. Patient plans to breast-feed. Magnesium sulfate will be continued added rate of 2 g per hour for 24 hours . 24 hours. Her blood pressures normalized and her deep tendon reflexes normalized. At 24 hours the patient was weaned off of the magnesium sulfate over several hours. She continued to have normal blood pressures and normal deep tendon reflexes. Headache she previously had was felt to be due to many magnesium sulfate therapy and resolved with discontinuation of the magnesium sulfate. Patient is nursing without problems, ambulating well, has minimal lochia and is voiding without concerns. She is desiring discharge home. Condition: Good Diagnosis: Stroke: No - Discharge Data Discharge Date: 12/18/19 Discharge Disposition: Home, Self-Care 01 Condition: Good - Referral to Home Health Primary Care Physician: Juju Chase MD - Patient Instructions Diet: Regular Diet as Tolerated (Nursing diet with increased calories and calcium as recommended) Activity: As Tolerated (No intercourse tampons until bleeding resolves) Driving: May Drive Today Showering/Bathing: May Shower (May take a bath) Notify Provider of: Fever, Increased Pain, Swelling and Redness, Nausea and/or Vomiting - Discharge Plan Home Medications: Home Meds Sertraline [Zoloft] 50 mg PO DAILY 11/19/15 [History] Vits #93/Iron Fum/FA [ Formula Tablet] 1 each PO DAILY [History] Famotidine [Pepcid] 20 mg PO DAILY 11/26/19 [History] Ferrous Sulfate 325 mg PO DAILY 11/26/19 [History] Acetaminophen [Tylenol] 650 mg PO Q4H PRN tablet 12/18/19 [Rx] Ibuprofen [Motrin] 600 mg PO Q4H PRN tablet 12/18/19 [Rx] - Discharge Summary/Plan Comment DC Time >30 min.: Yes Discharge Summary/Plan Comment: Discharge instructions: 1. Discharge home 2. Diet, activity and follow-up discussed with patient. Recommend nursing diet with increased calories and calcium. 3. Precautions given concern increased pain, bleeding, temperature, signs/ symptoms of DVT/PE. 4. Medications per home medication was printed, discussed with and given to the patient. 5. Patient is to call [facility] to set up an appointment with Dr. Chase to be seen within the next 5-7 days. Diagnosis: Term -delivered Condition: Good - Patient Data Vitals - Most Recent: Last Vital Signs Temp 36.6 C 12/18/19 08:23 Pulse 82 12/18/19 08:23 Resp 16 12/18/19 08:23 BP 139/91 H 05/26/20 08:23 Pulse Ox 98 12/18/19 08:23 Weight - Most Recent: 66.587 kg I&O - Last 24 hours: Intake & Output 12/17/19 12/18/19 12/18/19 22:59 06:59 14:59 Intake Total 2800 1370 920 Output Total 2300 1600 Balance 500 -230 920 Lab Results - Last 24 hrs: Laboratory Results - last 24 hr 12/17/19 12/17/19 12/17/19 Range/Units 11:52 16:56 23:23 Magnesium 5.7 H 5.6 H 5.5 H (1.8-2.4) mg/dl 12/18/19 Range/Units 05:15 Magnesium 4.6 H (1.8-2.4) mg/dl Med Orders - Current: Current Medications Acetaminophen (Tylenol) 650 mg PO Q4H PRN PRN Reason: mild pain or fever Last Admin: 12/18/19 03:56 Dose: 650 mg Benzocaine/Menthol (Dermoplast Pain Relief [place]) 0 gm TOP ASDIRECTED PRN PRN Reason: Perineal Comfort Measure Last Admin: 12/17/19 02:50 Dose: 1 canister Docusate Sodium (Colace) 100 mg PO BID PRN PRN Reason: Constipation Last Admin: 12/18/19 08:41 Dose: 100 mg Magnesium Sulfate (Magnesium Sulfate In Water Premix) 40 gm in 1,000 mls @ 50 mls/hr IV ASDIRECTED ANEL Last Infusion: 12/18/19 06:00 Dose: 0 mls/hr Ibuprofen (Motrin) 600 mg PO Q4H PRN PRN Reason: Mild pain or fever Last Admin: 12/18/19 08:41 Dose: 600 mg Prenat Multivit/Elliott/Iron/Folic Ac ( Plus Iron) 1 each PO DAILY [facility] Last Admin: 12/18/19 08:41 Dose: 1 each Sertraline HCl (Zoloft) 50 mg PO DAILY [facility] Last Admin: 12/18/19 11:03 Dose: Not Given Witch Sania (Tucks) 1 pad TOP ASDIRECTED PRN PRN Reason: Perineal Comfort Measure Last Admin: 12/17/19 02:51 Dose: 1 can Discontinued Medications Diphenhydramine HCl (Benadryl) 25 mg IVPUSH Q6H PRN PRN Reason: pruritis Ephedrine Sulfate (Ephedrine Sulfate) 5 mg IVPUSH ASDIRECTED PRN PRN Reason: Hypotension Fentanyl (Sublimaze) 100 mcg EPIDUR Q3H PRN PRN Reason: Pain Last Admin: 12/16/19 21:16 Dose: 100 mcg Fentanyl/Bupivacaine HCl (Fentanyl/Bupivacaine/Ns 2 Mcg-0.125% 100 Ml) 100 ml EPIDUR ASDIRECTED PRN PRN Reason: Pain Last Admin: 12/16/19 21:17 Dose: 100 ml Lactated Ringer's (Ringers, Lactated) 1,000 mls @ 100 mls/hr IV ASDIRECTED ANEL Last Admin: 12/16/19 22:20 Dose: 100 mls/hr Oxytocin/Lactated Ringer's (Pitocin In Lr 10 Units/1,000 Ml) 10 unit in 1,000 mls @ 500 mls/hr IV .CONTINUOUS ANEL Oxytocin/Lactated Ringer's (Pitocin In Lr 10 Units/1,000 Ml) 10 unit in 1,000 mls @ 12 mls/hr IV TITRATE ANEL; Protocol Last Titration: 12/17/19 01:40 Dose: 500 mls/hr Magnesium Sulfate (Magnesium Sulfate In Water Premix) 40 gm in 1,000 mls @ 50 mls/hr IV ASDIRECTED ANEL Last Admin: 12/16/19 22:35 Dose: 50 mls/hr Magnesium Sulfate 2 gm/ Premix 50 mls @ 300 mls/hr IV ONETIME ONE Stop: 12/16/19 21:58 Last Admin: 12/16/19 22:09 Dose: 300 mls/hr Magnesium Sulfate 4 gm/ Premix 50 mls @ 200 mls/hr IV ONETIME ONE Stop: 12/16/19 22:03 Last Admin: 12/16/19 22:19 Dose: 200 mls/hr Magnesium Sulfate 2 gm/ Premix 50 mls @ 25 mls/hr IV Q1H AENL Last Admin: 12/17/19 02:54 Dose: Not Given Lidocaine/Epinephrine (Xylocaine-Mpf 2%-Epi 1:200,000) 20 ml .ROUTE .STK-MED ONE Stop: 12/17/19 00:01 Nalbuphine HCl (Nubain) 10 mg IVPUSH Q2H PRN PRN Reason: Pain Ondansetron HCl (Zofran) 4 mg IVPUSH Q4H PRN PRN Reason: Nausea/Vomiting Last Admin: 12/16/19 23:36 Dose: 4 mg Oxycodone/Acetaminophen (Percocet 325-5 Mg) 1 tab PO ONETIME ONE Stop: 12/17/19 17:33 Last Admin: 12/17/19 17:55 Dose: 1 tab Sodium Chloride (Saline Flush) 10 ml FLUSH ASDIRECTED PRN PRN Reason: Keep Vein Open
== END 2019-12-18 13:00 | disposition home or self-care (01) | DRG 560 ==
LOC: JD.OBCHECK 16:23 → JD.OB 16:28 → JD.OBCHECK 17:38 → JD.OB 17:39 → OBSVTOIN 12-17 01:58 → JD.OB 12-17 01:59
PROVIDERS: ADMIT Obstetrics & Gynecology; ATTEND Obstetrics & Gynecology
PROC: 10E0XZZ Delivery of Products of Conception, External Approach (ICD-10-PCS; principal; 2019-12-17)
PROC: 10907ZC Drainage of Amniotic Fluid, Therapeutic from Products of Conception, Via Natural or Artificial Opening (ICD-10-PCS; 2019-12-17)
PROC: 3E033VJ Introduction of Other Hormone into Peripheral Vein, Percutaneous Approach (ICD-10-PCS; 2019-12-17)
PROC: 3E0R3BZ Introduction of Anesthetic Agent into Spinal Canal, Percutaneous Approach (ICD-10-PCS; 2019-12-17)
PROC: 00HU33Z Insertion of Infusion Device into Spinal Canal, Percutaneous Approach (ICD-10-PCS; 2019-12-17)
DX: O14.04 Mild to moderate pre-eclampsia, complicating childbirth (principal); O99.344 Other mental disorders complicating childbirth; F41.9 Anxiety disorder, unspecified; O24.429 Gestational diabetes mellitus in childbirth, unspecified control; Z37.0 Single live birth; O99.62 Diseases of the digestive system complicating childbirth; K21.9 Gastro-esophageal reflux disease without esophagitis; O99.52 Diseases of the respiratory system complicating childbirth; J45.909 Unspecified asthma, uncomplicated; Z3A.37 37 weeks gestation of pregnancy; Z88.0 Allergy status to penicillin
CPT/HCPCS: 01967; 36415; 51701; 51702; 51798; 59025; 59409; 82565; 82570; 83615; 83735; 84112; 84156; 84450; 84460; 84520; 84550; 85025; 85362; 85384; 86592; 86850; 86900; 86901; A9270-GY; J2405; J2590; J3010; J3475; J7120